=== PATIENT | female | born 1980 | race Caucasian/White ===

== ENCOUNTER 2021-02-13 19:32 | Inpatient (IN) | payer OTHER ==
[2021-02-13] MEDS ORDERED: ACETAMINOPHEN TAB 500 MG TAB PO STA (20:13)
--- NOTE | 2021-02-13 20:28 | ED ---
Skin/Abscess/FB HPI - General Chief complaint: Skin/Abscess/Foreign Body Stated complaint: leg pain, detox Time Seen by Provider: 02/13/21 19:52 Source: patient, EMS Mode of arrival: EMS - History of Present Illness Initial comments: 40-year-old female patient presents to the emergency department today for evaluation of redness and swelling to the lower extremities. 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 Staff there was concerned they would not be able to handle her medical complexity so they sent her here for further evaluation. Patient was diagnosed with lower extremity cellulitis a few weeks ago, was supposed to have IV antibiotic but did not go for her infusions. Patient states she feels generally unwell. Does report smoker's cough. Denies shortness of breath or wheezing. Her last dose of Suboxone was just prior to arrival. She is very concerned about detoxing. Patient denies any recent rash, chest pain, abdominal pain, nausea, vomiting, diarrhea, constipation, back pain, numbness, tingling, dizziness, weakness, hematuria, dysuria, urinary urgency, urinary frequency, headache, visual changes, or any other complaints. - Related Data Home Medications Medication Instructions Recorded Confirmed Albuterol Sulfate [Proair Hfa] 2 puff INHALATION RT-Q4H PRN 02/13/21 02/13/21 Amitriptyline HCl [Elavil] 100 mg PO HS 02/13/21 02/13/21 Aspirin 81 mg PO DAILY 02/13/21 02/13/21 Atorvastatin [Lipitor] 40 mg PO DAILY 02/13/21 02/13/21 Brexpiprazole [Rexulti] 4 mg PO DAILY 02/13/21 02/13/21 Buprenorphine HCl/Naloxone HCl 1 film SL TID 02/13/21 02/13/21 [Suboxone 8 mg-2 mg Sl Film] Diazepam [Valium] 5 mg PO Q8H PRN 02/13/21 02/13/21 Furosemide [Lasix] 40 mg PO DAILY 02/13/21 02/13/21 Gabapentin 800 mg PO QID 02/13/21 02/13/21 Hydrochlorothiazide 12.5 mg PO DAILY 02/13/21 02/13/21 [hydroCHLOROthiazide] Omeprazole [PriLOSEC] 20 mg PO DAILY 02/13/21 02/13/21 Potassium Chloride ER [K-Dur 10] 20 meq PO DAILY 02/13/21 02/13/21 Propranolol HCl 120 mg PO BID 02/13/21 02/13/21 Vilazodone HCl [Viibryd] 20 mg PO DAILY 02/13/21 02/13/21 Zolpidem [Ambien] 10 mg PO HS PRN 02/13/21 02/13/21 clonazePAM [KlonoPIN] 1 mg PO TID 02/13/21 02/13/21 hydrOXYzine HCL 25 mg PO TID PRN 02/13/21 02/13/21 metFORMIN HCL 500 mg PO AC-BID 02/13/21 02/13/21 Allergies Allergy/AdvReac Type Severity Reaction Status Date / Time metoclopramide [From Reglan] AdvReac Unknown Verified 02/13/21 22:01 sumatriptan [From Imitrex] AdvReac Unknown Verified 02/13/21 22:01 Review of Systems ROS Statement: Those systems with pertinent positive or pertinent negative responses have been documented in the HPI. ROS Other: All systems not noted in ROS Statement are negative. Past Medical History Past Medical History: Hyperlipidemia, Hypertension History of Any Multi-Drug Resistant Organisms: None Reported Past Surgical History: Cholecystectomy, Ear Surgery, Tubal Ligation Additional Past Surgical History / Comment(s): Cyst removal from ovary. Past Psychological History: Anxiety, Bipolar, Panic Disorder, Schizophrenia Smoking Status: Current every day smoker Past Alcohol Use History: None Reported Past Drug Use History: None Reported General Exam General appearance: alert, in no apparent distress, other (This is a well- developed, well-nourished adult female patient in no acute distress. Vital signs upon presentation are temperature 100.2F oral, pulse 125, respirations 20, blood pressure 143/89, pulse ox 97% on room air.) Eye exam: Present: normal appearance, PERRL, EOMI. Absent: scleral icterus, conjunctival injection, periorbital swelling ENT exam: Present: normal exam, normal oropharynx, mucous membranes moist Respiratory exam: Present: normal lung sounds bilaterally. Absent: respiratory distress, wheezes, rales, rhonchi, stridor Cardiovascular Exam: Present: regular rate, normal rhythm, normal heart sounds. Absent: systolic murmur, diastolic murmur, rubs, gallop, clicks GI/Abdominal exam: Present: soft, normal bowel sounds. Absent: distended, tenderness, guarding, rebound, rigid Extremities exam: Present: full ROM, normal capillary refill, other (Lower legs are edematous, overlying erythema, hot to touch. Skin is scaly.). Absent: tenderness, pedal edema, joint swelling, calf tenderness Neurological exam: Present: alert, oriented X3, CN II-XII intact Psychiatric exam: Present: normal affect, normal mood Skin exam: Present: warm, dry, intact, normal color. Absent: rash Course Vital Signs 02/13/21 02/13/21 02/13/21 19:43 20:09 21:50 Temperature 100.2 F H Pulse Rate 125 H 121 H 117 H Respiratory 20 20 20 Rate Blood Pressure 143/89 120/82 128/80 O2 Sat by Pulse 97 93 L 94 L Oximetry 02/13/21 23:08 Temperature 98.9 F Pulse Rate 112 H Respiratory 20 Rate Blood Pressure 129/77 O2 Sat by Pulse 92 L Oximetry Medical Decision Making - Medical Decision Making 40-year-old female patient presenting to the emergency department today for evaluation of bilateral lower extremity swelling and erythema. Upon arrival she is febrile tachycardic and hypoxic with oxygen running 84% on room air. Labs reviewed and did reveal white blood cell count of 14.4, neutrophils 10.9. D- dimer 1.96 urinalysis negative. Negative for COVID-19. CT angiography of the chest was obtained and showed no evidence for pulmonary embolism. Chest x-ray showed cardia megaly with interstitial infiltrates and interstitial edema. She was started on vancomycin and Kefzol. She'll be admitted to the hospital for further evaluation and treatment. Patient is agreeable to this plan. Case discussed with my attending Dr. Vanessa. - Lab Data Result diagrams: 02/13/21 21:11 02/13/21 21:11 Lab Results 02/13/21 02/13/21 02/13/21 Range/Units 21:11 21:11 21:11 WBC 14.4 H (3.8-10.6) k/uL RBC 4.70 (3.80-5.40) m/uL Hgb 13.8 (11.4-16.0) gm/dL Hct 41.6 (34.0-46.0) % MCV 88.5 (80.0-100.0) fL MCH 29.4 (25.0-35.0) pg MCHC 33.3 (31.0-37.0) g/dL RDW 15.3 (11.5-15.5) % Plt Count 330 (150-450) k/uL MPV 8.5 Neutrophils % 76 % Lymphocytes % 14 % Monocytes % 4 % Eosinophils % 5 % Basophils % 0 % Neutrophils # 10.9 H (1.3-7.7) k/uL Lymphocytes # 2.1 (1.0-4.8) k/uL Monocytes # 0.6 (0-1.0) k/uL Eosinophils # 0.7 (0-0.7) k/uL Basophils # 0.0 (0-0.2) k/uL PT 10.5 (9.0-12.0) sec INR 1.0 (<1.2) APTT 25.2 (22.0-30.0) sec D-Dimer (<0.60) mg/L FEU Sodium (137-145) mmol/L Potassium (3.5-5.1) mmol/L Chloride (98-107) mmol/L Carbon Dioxide (22-30) mmol/L Anion Gap mmol/L BUN (7-17) mg/dL Creatinine (0.52-1.04) mg/dL Est GFR (CKD-EPI)AfAm (>60 ml/min/1.73 sqM) Est GFR (CKD-EPI)NonAf (>60 ml/min/1.73 sqM) Glucose (74-99) mg/dL Plasma Lactic Acid Giovany (0.7-2.0) mmol/L Calcium (8.4-10.2) mg/dL Total Bilirubin (0.2-1.3) mg/dL AST (14-36) U/L ALT (4-34) U/L Alkaline Phosphatase (38-126) U/L Total Protein (6.3-8.2) g/dL Albumin (3.5-5.0) g/dL Urine Color Yellow Urine Appearance Clear (Clear) Urine pH 6.5 (5.0-8.0) Ur Specific [place] 1.012 (1.001-1.035) Urine Protein Negative (Negative) Urine Glucose (UA) Negative (Negative) Urine Ketones Negative (Negative) Urine Blood Negative (Negative) Urine Nitrite Negative (Negative) Urine Bilirubin Negative (Negative) Urine Urobilinogen <2.0 (<2.0) mg/dL Ur Leukocyte Esterase Moderate H (Negative) Urine RBC <1 (0-5) /hpf Urine WBC 2 (0-5) /hpf Ur Squamous Epith Cells 1 (0-4) /hpf Urine Mucus Rare H (None) /hpf Coronavirus (PCR) (Not Detectd) 02/13/21 02/13/21 02/13/21 Range/Units 21:11 21:11 21:11 WBC (3.8-10.6) k/uL RBC (3.80-5.40) m/uL Hgb (11.4-16.0) gm/dL Hct (34.0-46.0) % MCV (80.0-100.0) fL MCH (25.0-35.0) pg MCHC (31.0-37.0) g/dL RDW (11.5-15.5) % Plt Count (150-450) k/uL MPV Neutrophils % % Lymphocytes % % Monocytes % % Eosinophils % % Basophils % % Neutrophils # (1.3-7.7) k/uL Lymphocytes # (1.0-4.8) k/uL Monocytes # (0-1.0) k/uL Eosinophils # (0-0.7) k/uL Basophils # (0-0.2) k/uL PT (9.0-12.0) sec INR (<1.2) APTT (22.0-30.0) sec D-Dimer (<0.60) mg/L FEU Sodium 137 (137-145) mmol/L Potassium 3.9 (3.5-5.1) mmol/L Chloride 100 (98-107) mmol/L Carbon Dioxide 29 (22-30) mmol/L Anion Gap 8 mmol/L BUN 8 (7-17) mg/dL Creatinine 0.61 (0.52-1.04) mg/dL Est GFR (CKD-EPI)AfAm >90 (>60 ml/min/1.73 sqM) Est GFR (CKD-EPI)NonAf >90 (>60 ml/min/1.73 sqM) Glucose 107 H (74-99) mg/dL Plasma Lactic Acid Giovany 1.3 (0.7-2.0) mmol/L Calcium 9.3 (8.4-10.2) mg/dL Total Bilirubin 0.6 (0.2-1.3) mg/dL AST 19 (14-36) U/L ALT 14 (4-34) U/L Alkaline Phosphatase 155 H (38-126) U/L Total Protein 7.0 (6.3-8.2) g/dL Albumin 3.8 (3.5-5.0) g/dL Urine Color Urine Appearance (Clear) Urine pH (5.0-8.0) Ur Specific [place] (1.001-1.035) Urine Protein (Negative) Urine Glucose (UA) (Negative) Urine Ketones (Negative) Urine Blood (Negative) Urine Nitrite (Negative) Urine Bilirubin (Negative) Urine Urobilinogen (<2.0) mg/dL Ur Leukocyte Esterase (Negative) Urine RBC (0-5) /hpf Urine WBC (0-5) /hpf Ur Squamous Epith Cells (0-4) /hpf Urine Mucus (None) /hpf Coronavirus (PCR) Not Detected (Not Detectd) 02/13/21 Range/Units 21:11 WBC (3.8-10.6) k/uL RBC (3.80-5.40) m/uL Hgb (11.4-16.0) gm/dL Hct (34.0-46.0) % MCV (80.0-100.0) fL MCH (25.0-35.0) pg MCHC (31.0-37.0) g/dL RDW (11.5-15.5) % Plt Count (150-450) k/uL MPV Neutrophils % % Lymphocytes % % Monocytes % % Eosinophils % % Basophils % % Neutrophils # (1.3-7.7) k/uL Lymphocytes # (1.0-4.8) k/uL Monocytes # (0-1.0) k/uL Eosinophils # (0-0.7) k/uL Basophils # (0-0.2) k/uL PT (9.0-12.0) sec INR (<1.2) APTT (22.0-30.0) sec D-Dimer 1.96 H (<0.60) mg/L FEU Sodium (137-145) mmol/L Potassium (3.5-5.1) mmol/L Chloride (98-107) mmol/L Carbon Dioxide (22-30) mmol/L Anion Gap mmol/L BUN (7-17) mg/dL Creatinine (0.52-1.04) mg/dL Est GFR (CKD-EPI)AfAm (>60 ml/min/1.73 sqM) Est GFR (CKD-EPI)NonAf (>60 ml/min/1.73 sqM) Glucose (74-99) mg/dL Plasma Lactic Acid Giovany (0.7-2.0) mmol/L Calcium (8.4-10.2) mg/dL Total Bilirubin (0.2-1.3) mg/dL AST (14-36) U/L ALT (4-34) U/L Alkaline Phosphatase (38-126) U/L Total Protein (6.3-8.2) g/dL Albumin (3.5-5.0) g/dL Urine Color Urine Appearance (Clear) Urine pH (5.0-8.0) Ur Specific [place] (1.001-1.035) Urine Protein (Negative) Urine Glucose (UA) (Negative) Urine Ketones (Negative) Urine Blood (Negative) Urine Nitrite (Negative) Urine Bilirubin (Negative) Urine Urobilinogen (<2.0) mg/dL Ur Leukocyte Esterase (Negative) Urine RBC (0-5) /hpf Urine WBC (0-5) /hpf Ur Squamous Epith Cells (0-4) /hpf Urine Mucus (None) /hpf Coronavirus (PCR) (Not Detectd) - Radiology Data Radiology results: report reviewed, image reviewed Two-view x-ray of the chest is obtained. Report was reviewed in its entirety. Impression by Dr. Lomax shows cardiomegaly and pulmonary vascular congestion. CT angiography of the chest was obtained. Report was reviewed in its entirety. Impression by Dr. Sutton shows no evidence of pulmonary embolism. There is some mild interstitial infiltrate and atelectasis in both lower lobes. Cardiomegaly. There is also some groundglass mild interstitial infiltrates in the posterior upper lung lang. Disposition Clinical Impression: Cellulitis of both lower extremities Disposition: ADMITTED IP TO THIS [facility] Condition: Serious Decision to Admit Reason: Admit from EC Decision Date: 02/13/21 Decision Time: 23:45
[2021-02-13] MEDS: SODIUM CHLORIDE 0.9% 500 ML 500 ML IV SCH ×2 (20:30→21:00)
[2021-02-13 21:24] LABS: Basophils % (A) 0 %; Eosinophils # (A) 0.7 k/uL (0-0.7); Eosinophils % (A) 5 %; HCT 41.6 % (34.0-46.0); HGB 13.8 gm/dL (11.4-16.0); Lymphocytes # (A) 2.1 k/uL (1.0-4.8); Lymphocytes % (A) 14 %; MCH 29.4 pg (25.0-35.0); MCHC 33.3 g/dL (31.0-37.0); MCV 88.5 fL (80.0-100.0); Mean Platelet Volume 8.5; Monocytes # (A) 0.6 k/uL (0-1.0); Monocytes % (A) 4 %; Neutrophils # (A) 10.9 k/uL (1.3-7.7); Neutrophils % (A) 76 %; Platelet Count 330 k/uL (150-450); RDW 15.3 % (11.5-15.5); WBC 14.4 k/uL (3.8-10.6)
[2021-02-13 21:26] LABS: Appearance,Urine Clear (Clear); Bilirubin,Urine Negative (Negative); Blood,Urine Negative (Negative); Color,Urine Yellow; Glucose,Urine (UA) Negative (Negative); Ketones,Urine Negative (Negative); Leukocyte Esterase,Urine Moderate (Negative); Mucus,Urine Rare /hpf; Nitrite,Urine Negative (Negative); PH, Urine 6.5 (5.0-8.0); Protein,Urine Negative (Negative); RBC,Urine <1 /hpf (0-5); Specific Gravity,Urine 1.012 (1.001-1.035); Squamous Epithelial Cell,Urine 1 /hpf (0-4); Urobilinogen,Urine <2.0 mg/dL (<2.0); WBC,Urine 2 /hpf (0-5)
[2021-02-13 21:32] LABS: ALT 14 U/L (4-34); AST 19 U/L (14-36); African American GFR (CKD) >90 (>60 ml/min/1.73 sqM); Albumin 3.8 g/dL (3.5-5.0); Alkaline Phosphatase 155 U/L (38-126); Anion Gap 8 mmol/L; Blood Urea Nitrogen 8 mg/dL (7-17); Calcium 9.3 mg/dL (8.4-10.2); Carbon Dioxide 29 mmol/L (22-30); Chloride 100 mmol/L (98-107); Glucose 107 mg/dL (74-99); Non-African American GFR(CKD) >90 (>60 ml/min/1.73 sqM); Potassium 3.9 mmol/L (3.5-5.1); Sodium 137 mmol/L (137-145); Total Bilirubin 0.6 mg/dL (0.2-1.3)
[2021-02-13 21:34] LABS: Partial Thromboplastin Time 25.2 sec (22.0-30.0); Prothrombin Time 10.5 sec (9.0-12.0)
--- NOTE | 2021-02-13 21:57 | XR ---
EXAMINATION TYPE: XR chest 2V DATE OF EXAM: 02/13/2021 CLINICAL HISTORY: Fever. TECHNIQUE: Frontal and lateral view of the chest. COMPARISON: None FINDINGS: Cardiomegaly. There is pulmonary vascular congestion. There is no focal air space opacity. Trace pleural fluid in the right minor fissure. No pneumothorax seen. No acute displaced osseous fra cture. IMPRESSION: Cardiomegaly and pulmonary vascular congestion.
[2021-02-13] MEDS ORDERED: VANCOMYCIN IV PER PHARMACY 1 EACH MISC MISCELLANE PRN (22:45)
[2021-02-13] MEDS ORDERED: VANCOMYCIN 2,500 MG in SODIUM CHLORIDE 0.9% 500 ML 500 ML IVPB STA (22:51)
[2021-02-13] MEDS ORDERED: VANCOMYCIN 2,250 MG in SODIUM CHLORIDE 0.9% 500 ML 500 ML IVPB ONE (23:00)
[2021-02-13] MEDS ORDERED: ACETAMINOPHEN TAB 325 MG TAB PO PRN (23:37)
[2021-02-13] MEDS ORDERED: NALOXONE 0.4 MG/ML 1 ML VIAL IV PRN (23:37)
[2021-02-13] MEDS ORDERED: GABAPENTIN 400 MG CAP PO STA (23:43)
--- NOTE | 2021-02-14 00:06 | P.HPIM ---
History of Present Illness H&P Date: 02/13/21 Chief Complaint: Leg erythema This is a 40-year-old white female who reported to the emergency room because she was not accepted at [facility] because of medical complexity. She went to the rehab facility for addiction for opiates and benzos. She was found to have bilateral lower extremity erythema suspicious for cellulitis. Patient denies subjective fever or chills, no hematuria dysuria hematemesis or hematochezia. She denies shortness of breath but found to be hypoxic here in the emergency room with O2 saturation 84%. At the time of examination patient is in bed, she denies chest pain shortness of breath hematuria dysuria hematemesis or hematochezia. She states that she took Suboxone prior to coming to the hospital. Review of Systems 10 systems reviewed, pertinent positive and negative findings as in HPI. No ch est pain, no abdominal pain. Past Medical History Past Medical History: Hyperlipidemia, Hypertension History of Any Multi-Drug Resistant Organisms: None Reported Past Surgical History: Cholecystectomy, Ear Surgery, Tubal Ligation Additional Past Surgical History / Comment(s): Cyst removal from ovary. Past Psychological History: Anxiety, Bipolar, Panic Disorder, Schizophrenia Smoking Status: Current every day smoker Past Alcohol Use History: None Reported Past Drug Use History: None Reported Medications and Allergies Home Medications Medication Instructions Recorded Confirmed Type Albuterol Sulfate [Proair Hfa] 2 puff INHALATION RT-Q4H PRN 02/13/21 02/13/21 History Amitriptyline HCl [Elavil] 100 mg PO HS 02/13/21 02/13/21 History Aspirin 81 mg PO DAILY 02/13/21 02/13/21 History Atorvastatin [Lipitor] 40 mg PO DAILY 02/13/21 02/13/21 History Brexpiprazole [Rexulti] 4 mg PO DAILY 02/13/21 02/13/21 History Buprenorphine HCl/Naloxone HCl 1 film SL TID 02/13/21 02/13/21 History [Suboxone 8 mg-2 mg Sl Film] Diazepam [Valium] 5 mg PO Q8H PRN 02/13/21 02/13/21 History Furosemide [Lasix] 40 mg PO DAILY 02/13/21 02/13/21 History Gabapentin 800 mg PO QID 02/13/21 02/13/21 History Hydrochlorothiazide 12.5 mg PO DAILY 02/13/21 02/13/21 History [hydroCHLOROthiazide] Omeprazole [PriLOSEC] 20 mg PO DAILY 02/13/21 02/13/21 History Potassium Chloride ER [K-Dur 10] 20 meq PO DAILY 02/13/21 02/13/21 History Propranolol HCl 120 mg PO BID 02/13/21 02/13/21 History Vilazodone HCl [Viibryd] 20 mg PO DAILY 02/13/21 02/13/21 History Zolpidem [Ambien] 10 mg PO HS PRN 02/13/21 02/13/21 History clonazePAM [KlonoPIN] 1 mg PO TID 02/13/21 02/13/21 History hydrOXYzine HCL 25 mg PO TID PRN 02/13/21 02/13/21 History metFORMIN HCL 500 mg PO AC-BID 02/13/21 02/13/21 History Allergies Allergy/AdvReac Type Severity Reaction Status Date / Time metoclopramide [From Reglan] AdvReac Unknown Verified 02/13/21 22:01 sumatriptan [From Imitrex] AdvReac Unknown Verified 02/13/21 22:01 Physical Exam Vitals: Vital Signs Temp Pulse Resp BP Pulse Ox 02/13/21 23:08 98.9 F 112 H 20 129/77 92 L 02/13/21 21:50 117 H 20 128/80 94 L 02/13/21 20:09 121 H 20 120/82 93 L 02/13/21 19:43 100.2 F H 125 H 20 143/89 97 Intake and Output 02/13/21 02/13/21 02/14/21 14:59 22:59 06:59 Other: Weight 179.169 kg Constitutional: No acute distress, conversant, pleasant Eyes: Anicteric sclerae, moist conjunctiva, no lid-lag, PERRLA ENMT: NC/AT,Oropharynx clear, no erythema, exudates Neck:Supple, FROM, no masses, or JVD, No carotid bruits; No thyromegaly Lungs: Clear to auscultation, Clear to percussion, Normal respiratory effort, no accessory muscle use Cardiovascular: Heart regular in rate and rhythm, No murmurs, gallops, or rubs no peripheral edema Abdominal: Soft Nontender, nom distended, no guarding, no rebound or rigidity, Normoactive bowel sounds No hepatomegaly, No splenomegaly, No palpable mass No abdominal wall hernia noted Skin: Bilateral lower extremity discoloration and redness Extremities:No digital cyanosis , trace bilateral edema. Psychiatric: Alert and oriented to person, place and time, Appropriate affect Intact judgement Neuro: Muscles Strength 5/5 in all 4 extremities, Sensation to light touch grossly present throughout, Cranial nerves II-XII grossly intact. No focal sensory deficits Results CBC & Chem 7: 02/13/21 21:11 02/13/21 21:11 Labs: Abnormal Lab Results - Last 24 Hours (Table) 02/13/21 02/13/21 02/13/21 Range/Units 21:11 21:11 21:11 WBC 14.4 H (3.8-10.6) k/uL Neutrophils # 10.9 H (1.3-7.7) k/uL Glucose 107 H (74-99) mg/dL Alkaline Phosphatase 155 H (38-126) U/L Ur Leukocyte Esterase Moderate H (Negative) Urine Mucus Rare H (None) /hpf Assessment and Plan Plan: 1. Bilateral lower extremity venous stasis with bilateral cellulitis likely associated with diabetes: Start IV clindamycin, supportive care. 2. Leukocytoses: WBC 14,000 likely associated with cellulitis, treat underlying condition. IV fluids and IV antibiotics 3. Hypoxia, likely associated with obesity hypoventilation syndrome: Oxygen support, obtain d-dimer, obtain CT chest to rule out pulmonary embolism lower extension to Dopplers. 4. Hypervolemia: Unspecified etiology, start IV Lasix 40 mg once a day. 5. 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 7. Hyperlipidemia: Continue statin 8. Peripheral neuropathy secondary to diabetes: Continue gabapentin 9. Essential hypertension: Continue outpatient medications 10. Anxiety: On Klonopin DVT prophylaxis: Lovenox Disposition: Case management to assist with discharge until [facility] [place] once clinically stable.
--- NOTE | 2021-02-14 01:05 | CT ---
EXAMINATION TYPE: CT angio chest DATE OF EXAM: 02/14/2021 COMPARISON: None HISTORY: hypoxia, elevated d-dimer CT DLP: 902.2 mGycm Automated exposure control for dose reduction was used. CONTRAST: Performed with IV Contrast, patient injected with 70 mL of Isovue 370. There are 3-D post processed images. Exam limited by patient's size. Heart appears enlarged. There is some patchy atelectasis at the lung bases. There is no pleural effusion. There is no pericardial effusion. There are no hilar masses. The re is no mediastinal adenopathy. Thoracic aorta is intact. There is no aneurysm or dissection. There is no evidence of filling defect in the pulmonary arteries. Thoracic vertebra have normal alignment. Disc spaces are normal. There is no compression fracture. St ernum is intact. The ribs appear intact. IMPRESSION: No evidence of pulmonary embolism. There is some mild interstitial infiltrate and atelectasis in both lower lobes. Cardiomegaly. There is also some groundglass mild interstitial infiltrate in the bootmaker ior upper lung lang.
[2021-02-14 01:35] LABS: Basophils % (A) 0 %; Eosinophils # (A) 0.6 k/uL (0-0.7); Eosinophils % (A) 5 %; HCT 40.7 % (34.0-46.0); Lymphocytes # (A) 1.9 k/uL (1.0-4.8); Lymphocytes % (A) 16 %; MCH 28.3 pg (25.0-35.0); MCHC 31.8 g/dL (31.0-37.0); MCV 88.7 fL (80.0-100.0); Mean Platelet Volume 6.8; Monocytes # (A) 0.3 k/uL (0-1.0); Monocytes % (A) 2 %; Neutrophils % (A) 75 %; Platelet Count 396 k/uL (150-450); RBC 4.59 m/uL (3.80-5.40); RDW 15.4 % (11.5-15.5)
[2021-02-14 01:51] LABS: ALT 14 U/L (4-34); AST 18 U/L (14-36); African American GFR (CKD) >90 (>60 ml/min/1.73 sqM); Albumin 3.3 g/dL (3.5-5.0); Alkaline Phosphatase 134 U/L (38-126); Anion Gap 7 mmol/L; Blood Urea Nitrogen 7 mg/dL (7-17); Calcium 8.8 mg/dL (8.4-10.2); Carbon Dioxide 29 mmol/L (22-30); Chloride 102 mmol/L (98-107); Glucose 129 mg/dL (74-99); Non-African American GFR(CKD) >90 (>60 ml/min/1.73 sqM); Potassium 3.6 mmol/L (3.5-5.1); Sodium 138 mmol/L (137-145); Total Bilirubin 0.5 mg/dL (0.2-1.3); Total Protein 6.3 g/dL (6.3-8.2)
[2021-02-14] MEDS ORDERED: KETOROLAC 15 MG/ML 1 ML VIAL IM STA (05:59)
[2021-02-14] MEDS ORDERED: KETOROLAC 15 MG/ML 1 ML VIAL IVP STA (06:07)
[2021-02-14 06:25] LABS: Basophils % (A) 0 %; Eosinophils # (A) 0.4 k/uL (0-0.7); Eosinophils % (A) 4 %; HCT 45.6 % (34.0-46.0); HGB 14.7 gm/dL (11.4-16.0); Hypochromasia Slight; Lymphocytes # (A) 1.5 k/uL (1.0-4.8); Lymphocytes % (A) 14 %; MCHC 32.2 g/dL (31.0-37.0); MCV 90.2 fL (80.0-100.0); Mean Platelet Volume 8.3; Monocytes # (A) 0.6 k/uL (0-1.0); Monocytes % (A) 6 %; Neutrophils # (A) 8.2 k/uL (1.3-7.7); Neutrophils % (A) 75 %; Platelet Count 339 k/uL (150-450); RBC 5.06 m/uL (3.80-5.40); RDW 15.5 % (11.5-15.5); WBC 10.9 k/uL (3.8-10.6)
[2021-02-14 06:43] LABS: ALT 15 U/L (4-34); AST 30 U/L (14-36); African American GFR (CKD) >90 (>60 ml/min/1.73 sqM); Albumin 3.8 g/dL (3.5-5.0); Alkaline Phosphatase 140 U/L (38-126); Anion Gap 11 mmol/L; Blood Urea Nitrogen 7 mg/dL (7-17); Calcium 9.2 mg/dL (8.4-10.2); Carbon Dioxide 23 mmol/L (22-30); Chloride 105 mmol/L (98-107); Glucose 106 mg/dL (74-99); Non-African American GFR(CKD) >90 (>60 ml/min/1.73 sqM); Potassium 4.4 mmol/L (3.5-5.1); Sodium 139 mmol/L (137-145); Total Bilirubin 0.7 mg/dL (0.2-1.3); Total Protein 7.2 g/dL (6.3-8.2)
[2021-02-14 07:46] LABS: Glucose,Whole Blood 97 mg/dL (75-99)
[2021-02-14] MEDS: PANTOPRAZOLE 40 MG TABLET PO SCH (08:19)
[2021-02-14] MEDS: ATORVASTATIN 40 MG TAB PO SCH (08:20)
[2021-02-14] MEDS: hydroCHLOROthiazide 12.5 MG CAP PO SCH (08:20)
[2021-02-14] MEDS: PROPRANOLOL 40 MG TAB PO SCH ×2 (08:20→20:31)
[2021-02-14] MEDS: FUROSEMIDE 10 MG/ML 4 ML VIAL IV SCH (08:20)
[2021-02-14] MEDS: ASPIRIN 81 MG PO SCH (08:20)
[2021-02-14] MEDS: GABAPENTIN 400 MG CAP PO SCH ×4 (08:20→20:29)
[2021-02-14] MEDS: clonazePAM 1 MG TAB PO SCH ×3 (08:20→20:30)
[2021-02-14] MEDS: NON FORMULARY DRUG (Brexpiprazole [Rexulti] 4 MG Tablet) PO SCH (08:21)
[2021-02-14] MEDS: ENOXAPARIN 40 MG/0.4 ML SYRINGE SQ SCH (08:21)
--- NOTE | 2021-02-14 08:54 | US ---
EXAMINATION TYPE: US venous doppler duplex LE DATE OF EXAM: 02/14/2021 8:46 AM COMPARISON: NONE CLINICAL HISTORY: leg swelling . No redness. Pain. SIDE PERFORMED: Bilateral TECHNIQUE: The lower extremity deep venous system is examined utilizing real time linear array sonog kota with graded compression, doppler sonography and color-flow sonography. VESSELS IMAGED: Common Femoral Vein Deep Femoral Vein Greater Saphenous Vein * Femoral Vein Popliteal Vein Small Saphenous Vein *- not well visualized Proximal Calf Veins- not seen (* superficial vessels) Suboptimal due to patient body habitus Right Leg: Negative for acute DVT Left Leg: Negative for acute DVT Grayscale, color doppler, spectral doppler imaging performed of the deep veins of the bilateral lower extremities. There is normal flow, compressibility, vascular waveforms. IMPRESSION: Suboptimal study without convincing evidence of acute DVT in either lower extremity.
[2021-02-14] MEDS: HYDROcodone/APAP 5-325MG 1 EACH TAB PO PRN ×3 (10:43→20:30)
[2021-02-14] MEDS: VANCOMYCIN 2,250 MG in SODIUM CHLORIDE 0.9% 500 ML 500 ML IVPB SCH ×2 (11:26→23:40)
[2021-02-14 11:51] LABS: Glucose,Whole Blood 128 mg/dL (75-99)
[2021-02-14] MEDS: MORPHINE SULFATE 2 MG/ML SYRINGE IVP PRN ×3 (13:25→21:49)
--- NOTE | 2021-02-14 16:29 | ECHOF ---
Referral Reason:hypoxia MEASUREMENTS -------- HEIGHT: 162.6 cm WEIGHT: 179.2 kg BP: 119/81 IVSd: 1.5 cm (0.6 - 1.1) LVIDd: 4.3 cm (3.9 - 5.3) LVPWd: 1.2 cm (0.6 - 1.1) IVSs: 1.2 cm LVIDs: 2.3 cm LVPWs: 2.0 cm LAESV Index (A-L): 20.62 ml/m MV E Arnoldo: 1.26 m/s MV DecT: 232 ms MV A Arnoldo: 0.92 m/s MV E/A Ratio: 1.37 RAP: 5.00 mmHg RVSP: 40.28 mmHg FINDINGS -------- Sinus rhythm. This was a technically difficult study with suboptimal views. There is mild concentric left ventricular hypertrophy. Overall left ventricular systolic function i s normal with, an EF between 55 - 60 %. The RV was not well visualized. The left atrium was not well visualized. The right atrium was not well visualized. 5.0mg of Lumason was utilized for enhancement of images The aortic valve was not well visualized. There is no evidence of aortic regurgitation. There is no evidence of aortic stenosis. The mitral valve was not well visualized. Mild mitral regurgitation is present. The tricuspid valve was not well visualized. Mild tricuspid regurgitation present. Right ventricu lar systolic pressure is normal at < 35 mmHg. The right ventricular systolic pressure, as measured by Doppler, is 40.28mmHg. The pulmonic valve was not well visualized. There is no pulmonic regurgitation present. IVC Not well visualized. There is no pericardial effusion. CONCLUSIONS -------- 1. This was a technically difficult study with suboptimal views. 2. There is mild concentric left ventricular hypertrophy. 3. Overall left ventricular systolic function is normal with, an EF between 55 - 60 %. 4. Mild mitral regurgitation is present. 5. Mild tricuspid regurgitation present. 6. There is no pericardial effusion. BUNDLE CUTTER: Jenny Navarro RDCS
[2021-02-14 17:03] LABS: Glucose,Whole Blood 113 mg/dL (75-99)
--- NOTE | 2021-02-14 17:07 | P.PN ---
Subjective Progress Note Date: 02/14/21 Principal diagnosis: Lower extremity pain Patient is a 40-year-old female who presented to the emergency room with complaints of bilateral leg erythema, pain, swelling. Patient was being admitted for opiate and benzo's rehab states that she was just accepted into rehab facility [facility] however she was denied admission by their facility and sent to the hospital for evaluation due to concern for cellulitis. [id number]: Patient currently is in significant amount of bilateral lower extremity pain she is crying she states that she is going through which [employer] and is scared. She is requesting her home medication of Suboxone which hospital does not have. Patient states that she cannot take her home medication because she lives 9 hours away from the hospital Objective - Vital Signs Vital signs: Vital Signs Temp 97.9 F 02/14/21 14:22 Pulse 80 02/14/21 14:22 Resp 19 02/14/21 14:22 BP 114/74 02/14/21 14:22 Pulse Ox 98 02/14/21 14:22 Intake & Output 02/13/21 02/14/21 02/14/21 18:59 06:59 18:59 Intake Total 436 Balance 436 Weight 179.169 kg Intake: Oral 436 Other: # Voids 1 2 - Exam Constitutional: No acute distress, conversant, pleasant Eyes: Anicteric sclerae, moist conjunctiva, no lid-lag, PERRLA ENMT: NC/AT,Oropharynx clear, no erythema, exudates Neck:Supple, FROM, no masses, or JVD, No carotid bruits; No thyromegaly Lungs: Clear to auscultation, Clear to percussion, Normal respiratory effort, no accessory muscle use Cardiovascular: Heart regular in rate and rhythm, No murmurs, gallops, or rubs no peripheral edema Abdominal: Soft Nontender, nom distended, no guarding, no rebound or rigidity, Normoactive bowel sounds No hepatomegaly, No splenomegaly, No palpable mass No abdominal wall hernia noted Skin: Bilateral lower extremity discoloration and redness Extremities: She has chronic lymphedema no significant erythema noted Psychiatric: Alert and oriented to person, place and time, Appropriate affect Intact judgement Neuro: Muscles Strength 5/5 in all 4 extremities, Sensation to light touch grossly present throughout, Cranial nerves II-XII grossly intact. No focal sensory deficits - Labs CBC & Chem 7: 02/14/21 05:43 02/14/21 05:43 Labs: Abnormal Lab Results - Last 24 Hours (Table) 02/13/21 02/13/21 02/13/21 Range/Units 21:11 21:11 21:11 WBC 14.4 H (3.8-10.6) k/uL Neutrophils # 10.9 H (1.3-7.7) k/uL D-Dimer (<0.60) mg/L FEU Glucose 107 H (74-99) mg/dL POC Glucose (mg/dL) (75-99) mg/dL Alkaline Phosphatase 155 H (38-126) U/L Albumin (3.5-5.0) g/dL Ur Leukocyte Esterase Moderate H (Negative) Urine Mucus Rare H (None) /hpf 02/13/21 02/14/21 02/14/21 Range/Units 21:11 01:25 01:25 WBC 12.0 H (3.8-10.6) k/uL Neutrophils # 9.0 H (1.3-7.7) k/uL D-Dimer 1.96 H 1.50 H (<0.60) mg/L FEU Glucose (74-99) mg/dL POC Glucose (mg/dL) (75-99) mg/dL Alkaline Phosphatase (38-126) U/L Albumin (3.5-5.0) g/dL Ur Leukocyte Esterase (Negative) Urine Mucus (None) /hpf 02/14/21 02/14/21 02/14/21 Range/Units 01:25 05:43 05:43 WBC 10.9 H (3.8-10.6) k/uL Neutrophils # 8.2 H (1.3-7.7) k/uL D-Dimer (<0.60) mg/L FEU Glucose 129 H 106 H (74-99) mg/dL POC Glucose (mg/dL) (75-99) mg/dL Alkaline Phosphatase 134 H 140 H (38-126) U/L Albumin 3.3 L (3.5-5.0) g/dL Ur Leukocyte Esterase (Negative) Urine Mucus (None) /hpf 02/14/21 Range/Units 11:50 WBC (3.8-10.6) k/uL Neutrophils # (1.3-7.7) k/uL D-Dimer (<0.60) mg/L FEU Glucose (74-99) mg/dL POC Glucose (mg/dL) 128 H (75-99) mg/dL Alkaline Phosphatase (38-126) U/L Albumin (3.5-5.0) g/dL Ur Leukocyte Esterase (Negative) Urine Mucus (None) /hpf Assessment and Plan Assessment: 1. Bilateral lower extremity venous stasis with possible bilateral cellulitis -Patient currently is on cefazolin and vancomycin which we should be able to de- escalate -Currently patient's lower extremity does not appear to be erythematous. We'll order infectious workup including pro-Aureliano sed rate CRP. Patient did not have any evidence of pyrexia however did have elevated WBC count at admission. 2. Leukocytoses -Continue to trend. 3. Acute hypoxic respiratory failure -Patient does not report on home oxygen use. She is currently on 4 L nasal cannula. CTA was negative for evidence of PE. Did show possibility of mild interstitial infiltrate and atelectasis in both lower lobes. Patient was started on broad-spectrum antibiotics of vancomycin and cefazolin. We'll continue to monitor and de-escalate as able. 4. Hypervolemia -Patient was given dose of diuretic therapy in the emergency room. Patient's echocardiogram shows preserved EF without evidence of stroke and congestive heart failure 5. 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 Opiates and benzos abuse/dependence with impending withdrawal -Patient states that she is taking Suboxone medication for years. She was being admitted to [facility] [place] for benzo dependence. Patient is unable to have her home Suboxone medication years old will start patient on opioid medication to prevent abrupt withdrawal. Wean as able 7. Hyperlipidemia: -Continue statin 8. Peripheral neuropathy secondary to diabetes: -Continue gabapentin 9. Essential hypertension -BP currently stable continue with home medication hydrochlorothiazide 10. Anxiety: On Klonopin DVT prophylaxis: Lovenox Disposition: Case management to assist with discharge until [facility] once clinically stable.
[2021-02-14 20:19] LABS: Glucose,Whole Blood 120 mg/dL (75-99)
[2021-02-14] MEDS: NICOTINE 21MG/24HR PATCH TRANSDERM SCH (20:28)
[2021-02-14] MEDS: AMITRIPTYLINE HCL 50 MG TAB PO SCH (20:31)
[2021-02-15] MEDS: HYDROcodone/APAP 5-325MG 1 EACH TAB PO PRN ×6 (00:51→22:07)
[2021-02-15] MEDS: MORPHINE SULFATE 2 MG/ML SYRINGE IVP PRN ×4 (02:30→20:40)
[2021-02-15 07:29] LABS: Glucose,Whole Blood 101 mg/dL (75-99)
[2021-02-15] MEDS: NON FORMULARY DRUG (Brexpiprazole [Rexulti] 4 MG Tablet) PO SCH (07:42)
[2021-02-15] MEDS: ASPIRIN 81 MG PO SCH (07:49)
[2021-02-15] MEDS: ATORVASTATIN 40 MG TAB PO SCH (07:49)
[2021-02-15] MEDS: PANTOPRAZOLE 40 MG TABLET PO SCH (07:49)
[2021-02-15] MEDS: clonazePAM 1 MG TAB PO SCH ×3 (07:50→22:07)
[2021-02-15] MEDS: GABAPENTIN 400 MG CAP PO SCH ×4 (07:50→20:41)
[2021-02-15] MEDS: NICOTINE 21MG/24HR PATCH TRANSDERM SCH (07:50)
[2021-02-15] MEDS: FUROSEMIDE 10 MG/ML 4 ML VIAL IV SCH (07:50)
[2021-02-15] MEDS: ENOXAPARIN 40 MG/0.4 ML SYRINGE SQ SCH (07:50)
[2021-02-15] MEDS: hydroCHLOROthiazide 12.5 MG CAP PO SCH (07:50)
[2021-02-15] MEDS: PROPRANOLOL 40 MG TAB PO SCH ×2 (07:51→20:41)
[2021-02-15] MEDS: VANCOMYCIN 2,250 MG in SODIUM CHLORIDE 0.9% 500 ML 500 ML IVPB SCH (11:17)
[2021-02-15 12:05] LABS: Basophils # (A) 0.03 X 10*3/uL (0.00-0.10); Basophils % (A) 0.3 %; Eosinophils # (A) 0.49 X 10*3/uL (0.04-0.35); Eosinophils % (A) 5.5 %; HCT 38.6 % (37.2-46.3); HGB 11.7 g/dL (12.0-15.0); Lymphocytes # (A) 1.67 X 10*3/uL (0.90-5.00); Lymphocytes % (A) 18.6 %; MCH 27.9 pg (27.0-32.0); MCHC 30.3 g/dL (32.0-37.0); MCV 91.9 fL (80.0-97.0); Monocytes # (A) 0.46 X 10*3/uL (0.20-1.00); Monocytes % (A) 5.1 %; Neutrophils # (A) 6.27 X 10*3/uL (1.80-7.70); Neutrophils % (A) 70.1 %; Platelet Count 381 X 10*3/uL (140-440); RDW 16.3 % (11.5-14.5); WBC 8.96 X 10*3/uL (4.50-10.00)
[2021-02-15 12:20] LABS: Glucose,Whole Blood 134 mg/dL (75-99)
[2021-02-15 13:12] LABS: African American GFR (CKD) 124.7 (60.0-200.0); Anion Gap 5.9 mmol/L (4.00-12.00); BUN/Creat Ratio 11.43 Ratio (12.00-20.00); C Reactive Protein 6.2 mg/dL (0.0-0.8); Calcium 8.9 mg/dL (8.7-10.3); Carbon Dioxide 32.1 mmol/L (21.6-31.8); Non-African American GFR(CKD) 107.6 (60.0-200.0); Potassium 3.9 mmol/L (3.5-5.5)
[2021-02-15 13:53] LABS: Erythrocyte Sedimentation Rate 53 mm/Hr (0-20)
--- NOTE | 2021-02-15 14:40 | P.PN ---
Subjective Progress Note Date: 02/15/21 Hospital course Patient is a 40-year-old female who presented to the emergency room with complaints of bilateral leg erythema, pain, swelling. Patient was being admitted for opiate and benzo's rehab states that she was just accepted into rehab facility [facility] however she was denied admission by their facility and sent to the hospital for evaluation due to concern for cellulitis. Subjective: 02/15/2021 Patient feels better, no chest pain no abdominal pain no nausea no vomiting no dizziness. She is on 3-4 L of oxygen. Remains afebrile Objective - Vital Signs Vital signs: Vital Signs Temp 97.6 F 02/15/21 07:00 Pulse 83 02/15/21 07:00 Resp 16 02/15/21 07:00 BP 122/77 02/15/21 07:00 Pulse Ox 94 L 02/15/21 08:45 Intake & Output 02/14/21 02/15/21 02/15/21 18:59 06:59 18:59 Intake Total 556 10 238 Balance 556 10 238 Intake: IV 10 Invasive Line 2 10 Oral 556 238 Other: # Voids 2 3 2 - Exam Constitutional: No acute distress, conversant, pleasant Eyes: Anicteric sclerae, moist conjunctiva, no lid-lag, PERRLA ENMT: NC/AT,Oropharynx clear, no erythema, exudates Neck:Supple, FROM, no masses, or JVD Lungs: Clear to auscultation, Clear to percussion, Normal respiratory effort, no accessory muscle use Cardiovascular: Heart regular in rate and rhythm, No murmurs, gallops, or rubs no peripheral edema Abdominal: Soft Nontender, non distended, no guarding, no rebound or rigidity Skin: Bilateral lower extremity discoloration and redness Extremities: She has chronic lymphedema no significant erythema noted Psychiatric: Alert and oriented to person, place and time, Appropriate affect Intact judgement Neuro: Muscles Strength 5/5 in all 4 extremities, Sensation to light touch g rossly present throughout, Cranial nerves II-XII grossly intact. No focal sensory deficits - Labs CBC & Chem 7: 02/15/21 06:24 02/15/21 06:24 Labs: Abnormal Lab Results - Last 24 Hours (Table) 02/14/21 02/14/21 02/15/21 Range/Units 17:01 20:18 06:24 Hgb 11.7 L (12.0-15.0) g/dL MCHC 30.3 L (32.0-37.0) g/dL RDW 16.3 H (11.5-14.5) % Eosinophils # 0.49 H (0.04-0.35) X 10*3/uL ESR 53 H (0-20) mm/Hr Carbon Dioxide (21.6-31.8) mmol/L BUN (9.0-27.0) mg/dL BUN/Creatinine Ratio (12.00-20.00) Ratio POC Glucose (mg/dL) 113 H 120 H (75-99) mg/dL C-Reactive Protein (0.0-0.8) mg/dL 02/15/21 02/15/21 02/15/21 Range/Units 06:24 07:28 12:19 Hgb (12.0-15.0) g/dL MCHC (32.0-37.0) g/dL RDW (11.5-14.5) % Eosinophils # (0.04-0.35) X 10*3/uL ESR (0-20) mm/Hr Carbon Dioxide 32.1 H (21.6-31.8) mmol/L BUN 8.0 L (9.0-27.0) mg/dL BUN/Creatinine Ratio 11.43 L (12.00-20.00) Ratio POC Glucose (mg/dL) 101 H 134 H (75-99) mg/dL C-Reactive Protein 6.2 H (0.0-0.8) mg/dL Microbiology - Last 24 Hours (Table) 02/13/21 21:11 Blood Culture - Preliminary Blood No Growth after 24 hours 02/13/21 21:11 Blood Culture - Preliminary Blood No Growth after 24 hours Assessment and Plan Plan: 1. Bilateral lower extremity venous stasis with bilateral cellulitis likely associated with diabetes: Deescalate antibiotics to cefazolin. Discontinue vancomycin. 2. Leukocytoses: WBC 14,000 likely associated with cellulitis, treat underlying condition. Normalized. 3. Acute Hypoxia, with acute hypoxic respiratory failure likely associated with obesity hypoventilation syndrome: Oxygen support, CT chest negative for PE. Continue on antibiotics for infiltrates. 4. Hypervolemia: Unspecified etiology, continue IV Lasix, 2-D echo preserved ejection fraction. 5. Diabetes type 2 with chronic venous stasis and hyperglycemia: Continue on insulin sliding scale 6. 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 Patient was initially went to be admitted to [facility] for benzo dependence but 31 7. Hyperlipidemia: Continue statin 8. Peripheral neuropathy secondary to diabetes: Continue gabapentin 9. Essential hypertension: Continue outpatient medications 10. Anxiety: On Klonopin DVT prophylaxis: Lovenox Disposition: Case management to assist with discharge to [facility] once clinically stable.
[2021-02-15 16:56] LABS: Glucose,Whole Blood 100 mg/dL (75-99)
[2021-02-15 20:04] LABS: Glucose,Whole Blood 133 mg/dL (75-99)
[2021-02-15] MEDS: AMITRIPTYLINE HCL 50 MG TAB PO SCH (20:41)
[2021-02-16] MEDS: MORPHINE SULFATE 2 MG/ML SYRINGE IVP PRN ×7 (00:31→23:29)
[2021-02-16] MEDS: HYDROcodone/APAP 5-325MG 1 EACH TAB PO PRN ×6 (02:05→21:34)
[2021-02-16 06:32] LABS: ALT 14 U/L (4-34); AST 25 U/L (14-36); African American GFR (CKD) >90 (>60 ml/min/1.73 sqM); Albumin 3.8 g/dL (3.5-5.0); Albumin/Globulin Ratio 1.2; Alkaline Phosphatase 136 U/L (38-126); Anion Gap 7 mmol/L; Blood Urea Nitrogen 7 mg/dL (7-17); Calcium 9.3 mg/dL (8.4-10.2); Carbon Dioxide 31 mmol/L (22-30); Chloride 98 mmol/L (98-107); Globulin 3.2 g/dL; Glucose 97 mg/dL (74-99); Non-African American GFR(CKD) >90 (>60 ml/min/1.73 sqM); Sodium 136 mmol/L (137-145); Total Bilirubin 0.4 mg/dL (0.2-1.3)
[2021-02-16 07:13] LABS: Glucose,Whole Blood 96 mg/dL (75-99)
[2021-02-16] MEDS: GABAPENTIN 400 MG CAP PO SCH ×4 (08:28→20:21)
[2021-02-16] MEDS: clonazePAM 1 MG TAB PO SCH ×3 (08:28→20:21)
[2021-02-16] MEDS: ENOXAPARIN 40 MG/0.4 ML SYRINGE SQ SCH (08:28)
[2021-02-16] MEDS: hydroCHLOROthiazide 12.5 MG CAP PO SCH (08:28)
[2021-02-16] MEDS: PANTOPRAZOLE 40 MG TABLET PO SCH (08:28)
[2021-02-16] MEDS: ATORVASTATIN 40 MG TAB PO SCH (08:28)
[2021-02-16] MEDS: ASPIRIN 81 MG PO SCH (08:28)
[2021-02-16] MEDS: NICOTINE 21MG/24HR PATCH TRANSDERM SCH (08:29)
[2021-02-16] MEDS: PROPRANOLOL 40 MG TAB PO SCH ×3 (08:29→23:06)
[2021-02-16] MEDS: FUROSEMIDE 10 MG/ML 4 ML VIAL IV SCH (08:29)
[2021-02-16] MEDS: NON FORMULARY DRUG (Brexpiprazole [Rexulti] 4 MG Tablet) PO SCH (08:37)
[2021-02-16] MEDS ORDERED: VANCOMYCIN TROUGH DUE 1 EACH MISC MISCELLANE ONE (10:00)
[2021-02-16 11:53] LABS: Glucose,Whole Blood 112 mg/dL (75-99)
[2021-02-16 12:31] LABS: Basophils # (A) 0.04 X 10*3/uL (0.00-0.10); Basophils % (A) 0.5 %; Eosinophils # (A) 0.52 X 10*3/uL (0.04-0.35); Eosinophils % (A) 6.3 %; HGB 11.7 g/dL (12.0-15.0); Lymphocytes # (A) 1.68 X 10*3/uL (0.90-5.00); Lymphocytes % (A) 20.2 %; MCH 27.5 pg (27.0-32.0); MCV 91.8 fL (80.0-97.0); Mean Platelet Volume 10.7 fL (9.5-12.2); Monocytes # (A) 0.44 X 10*3/uL (0.20-1.00); Monocytes % (A) 5.3 %; Neutrophils % (A) 67.2 %; Platelet Count 355 X 10*3/uL (140-440); RBC 4.25 X 10*6/uL (4.10-5.20); WBC 8.32 X 10*3/uL (4.50-10.00)
[2021-02-16] MEDS: traMADol 50 MG TAB PO PRN ×2 (15:23→19:37)
[2021-02-16 17:25] LABS: Glucose,Whole Blood 116 mg/dL (75-99)
[2021-02-16] MEDS: AMITRIPTYLINE HCL 50 MG TAB PO SCH (20:21)
[2021-02-16 20:23] VITALS: RESP 16
[2021-02-16 20:28] LABS: Glucose,Whole Blood 109 mg/dL (75-99)
--- NOTE | 2021-02-16 21:36 | P.PN ---
Subjective Progress Note Date: 02/16/21 (delayed charting seen at 1330) Patient is a 40-year-old female with a history of chronic opiate dependency on Suboxone, diabetes mellitus type 2 with neuropathy, dyslipidemia, and hypertension who presented to the ER from [place] secondary to concerns for cellulitis. He was subsequently diagnosed with bilateral lower extremity venous stasis with possible cellulitis and was started on IV clindamycin. Her white blood cell count continued to improve during her hospital stay. He continued to improve rapidly. Due to hypoxia she underwent a CT of the chest which showed no evidence of pulmonary embolism but some mild interstitial infiltrate and atelectasis in both lower lobes. Chest x-ray showed pulmonary edema. Lower extremity venous Doppler was a suboptimal study but no concerning evidence of acute DVT. She underwent echocardiogram which showed an ejection fraction of 55-60%. Her antibiotics had been transitioned to cefazolin on 02/14. She also been started on IV Lasix. Patient seen and examined at bedside. She is feeling much better her legs are much less red and swollen. General: non toxic, no distress, appears at stated age, obese, appears older than stated age Derm: warm, dry Head: atraumatic, normocephalic, symmetric Eyes: EOMI, no lid lag, anicteric sclera Mouth: no lip lesion, mucus membranes moist Cardiovascular: S1S2 reg, no murmur, positive posterior tibial pulse bilateral, Lungs: CTA bilateral, no rhonchi, no rales , no accessory muscle use Abdominal: soft, nontender to palpation, no guarding, no appreciable organomegaly Ext: no gross muscle atrophy, no edema, no contractures Neuro: CN II-XI grossly intact, no focal neuro deficits Psych: Alert, oriented, appropriate affect Bilateral chronic venous stasis changes with acute cellulitis -Continue with Cefazolin. Plan will be to complete a course of 7 days of Keflex on discharge -Continue with elevating her legs and wrapping -Oral Lasix on discharge Chronic opiate dependency -Patient is off of her Suboxone as it is not available in the hospital and she is from [place] -Continue with [place] and Ultram for pain Acute hypoxic respiratory failure -Workup has been negative -Suspect secondary to restrictive disease from morbid obesity -Wean O2 as able Chronic conditions: Indications reviewed Diabetes mellitus type 2 with neuropathy Dyslipidemia Hypertension Objective - Vital Signs Vital signs: Vital Signs Temp 97.9 F 02/16/21 19:08 Pulse 82 02/16/21 19:08 Resp 16 02/16/21 19:08 BP 100/68 02/16/21 19:08 Pulse Ox 95 02/16/21 19:08 Intake & Output 02/16/21 02/16/21 02/17/21 06:59 18:59 06:59 Intake Total 760 Balance 760 Intake: Oral 760 Other: Voiding Method Toilet # Voids 3 3 1 - Labs CBC & Chem 7: 02/16/21 05:27 02/16/21 05:27 Labs: Abnormal Lab Results - Last 24 Hours (Table) 02/16/21 02/16/21 02/16/21 Range/Units 05:27 05:27 11:52 Hgb 11.7 L (12.0-15.0) g/dL MCHC 30.0 L (32.0-37.0) g/dL RDW 16.0 H (11.5-14.5) % Eosinophils # 0.52 H (0.04-0.35) X 10*3/uL Sodium 136 L (137-145) mmol/L Carbon Dioxide 31 H (22-30) mmol/L POC Glucose (mg/dL) 112 H (75-99) mg/dL Alkaline Phosphatase 136 H (38-126) U/L 02/16/21 02/16/21 Range/Units 17:24 20:27 Hgb (12.0-15.0) g/dL MCHC (32.0-37.0) g/dL RDW (11.5-14.5) % Eosinophils # (0.04-0.35) X 10*3/uL Sodium (137-145) mmol/L Carbon Dioxide (22-30) mmol/L POC Glucose (mg/dL) 116 H 109 H (75-99) mg/dL Alkaline Phosphatase (38-126) U/L Microbiology - Last 24 Hours (Table) 02/13/21 21:11 Blood Culture - Preliminary Blood No Growth after 48 hours 02/13/21 21:11 Blood Culture - Preliminary Blood No Growth after 48 hours
[2021-02-16] MEDS: AMMONIUM LACTATE 12% LOTION 225 GM BTL TOPICAL SCH (23:02)
[2021-02-17] MEDS: HYDROcodone/APAP 5-325MG 1 EACH TAB PO PRN ×2 (02:39→08:37)
[2021-02-17 02:51] VITALS: TEMP 98
[2021-02-17] MEDS: MORPHINE SULFATE 2 MG/ML SYRINGE IVP PRN ×2 (04:57→09:16)
[2021-02-17] MEDS: traMADol 50 MG TAB PO PRN (05:53)
[2021-02-17 07:44] LABS: Glucose,Whole Blood 102 mg/dL (75-99)
[2021-02-17] MEDS: NICOTINE 21MG/24HR PATCH TRANSDERM SCH (08:30)
[2021-02-17] MEDS: ENOXAPARIN 40 MG/0.4 ML SYRINGE SQ SCH (08:30)
[2021-02-17] MEDS: clonazePAM 1 MG TAB PO SCH (08:31)
[2021-02-17] MEDS: PROPRANOLOL 40 MG TAB PO SCH (08:31)
[2021-02-17] MEDS: ASPIRIN 81 MG PO SCH (08:31)
[2021-02-17] MEDS: PANTOPRAZOLE 40 MG TABLET PO SCH (08:31)
[2021-02-17] MEDS: ATORVASTATIN 40 MG TAB PO SCH (08:31)
[2021-02-17] MEDS: hydroCHLOROthiazide 12.5 MG CAP PO SCH (08:31)
[2021-02-17] MEDS: GABAPENTIN 400 MG CAP PO SCH (08:31)
[2021-02-17] MEDS: FUROSEMIDE 10 MG/ML 4 ML VIAL IV SCH (08:32)
[2021-02-17] MEDS: AMMONIUM LACTATE 12% LOTION 225 GM BTL TOPICAL SCH (08:37)
[2021-02-17] MEDS: NON FORMULARY DRUG (Brexpiprazole [Rexulti] 4 MG Tablet) PO SCH (08:38)
[2021-02-17 08:54] VITALS: BP 126/77; PULSE 95
--- NOTE | 2021-02-17 20:04 | P.DS ---
Providers Date of admission: 02/16/21 09:05 Expected date of discharge: 02/17/21 Attending physician: Paige Cárdenas MD Primary care physician: Physician Nonstaff Hospital Course: Discharge Diagnosis: Bilateral chronic venous stasis changes with acute cellulitis Chronic opiate dependency Acute hypoxic respiratory failure Morbid obeisty with BMI 67.8 Diabetes mellitus type 2 with neuropathy Dyslipidemia Hypertension Hospital Course: Patient is a 40-year-old female with a history of chronic opiate dependency on Suboxone, diabetes mellitus type 2 with neuropathy, dyslipidemia, and hypertension who presented to the ER from [place] secondary to concerns for cellulitis. He was subsequently diagnosed with bilateral lower extremity venous stasis with possible cellulitis and was started on IV clindamycin whcihc was transitioned to cefazolin. Her white blood cell count continued to improve during her hospital stay. Due to hypoxia she underwent a CT of the chest which showed no evidence of pulmonary embolism but some mild interstitial infiltrate and atelectasis in both lower lobes. Chest x-ray showed pulmonary edema. Lower extremity venous Doppler was a suboptimal study but no concerning evidence of acute DVT. She underwent echocardiogram which showed an ejection fraction of 55-60%. Her antibiotics had been transitioned to cefazolin on 02/14. She also been started on IV Lasix which improved her lower stomach edema. She was determined stable for discharge home to complete a course of oral antibiotics I'll up: PCP in 1-2 weeks, patient is being discharged to [facility]. She will obtain compression stockings that are sized appropriately and resume her home hydrochlorothiazide and Lasix dosing. I discussed that she will need to follow-up with her primary care physician as she should be optimized on either of these medications but not usable concurrently. Patient seen and examined at bedside. Having some shortness of breath when up a nd walking but states she is used to that. Denies any nausea, vomiting. States her legs feel better. Vital signs reviewed and stable. General: non toxic, no distress, appears at stated age Derm: Lymphedema bilateral lower extremities, nonpitting with improved redness from ankle to as well as thick wanda appearance to both legs. Head: atraumatic, normocephalic, symmetric Eyes: EOMI, no lid lag, anicteric sclera Mouth: no lip lesion, mucus membranes moist Cardiovascular: S1S2 reg, no murmur, positive posterior tibial pulse bilateral, Lungs: Decreased breath sounds bilateral, no rhonchi, no rales , no accessory muscle use Abdominal: soft, nontender to palpation, no guarding, no appreciable organomegaly Ext: no gross muscle atrophy, no edema, no contractures Neuro: CN II-XI grossly intact, no focal neuro deficits Psych: Alert, oriented, appropriate affect A total of 45 minutes of time were spent preparing this complex discharge summary . Patient Condition at Discharge: Stable Plan - Discharge Summary New Discharge Prescriptions: New Cephalexin [Keflex] 500 mg PO Q12HR 5 Days #10 cap Ammonium Lactate Lotion [Lac-Hydrin 12% Lotion] 1 applic TOPICAL BID ml Continue Zolpidem [Ambien] 10 mg PO HS PRN PRN Reason: Insomnia Albuterol Sulfate [Proair Hfa] 2 puff INHALATION RT-Q4H PRN PRN Reason: Shortness Of Breath metFORMIN HCL 500 mg PO AC-BID hydrOXYzine HCL 25 mg PO TID PRN PRN Reason: Anxiety Potassium Chloride ER [K-Dur 10] 20 meq PO DAILY Omeprazole [PriLOSEC] 20 mg PO DAILY Hydrochlorothiazide [hydroCHLOROthiazide] 12.5 mg PO DAILY clonazePAM [KlonoPIN] 1 mg PO TID Buprenorphine HCl/Naloxone HCl [Suboxone 8 mg-2 mg Sl Film] 1 film SL TID Atorvastatin [Lipitor] 40 mg PO DAILY Aspirin 81 mg PO DAILY Vilazodone HCl [Viibryd] 20 mg PO DAILY Propranolol HCl 120 mg PO BID Brexpiprazole [Rexulti] 4 mg PO DAILY Gabapentin 800 mg PO QID Furosemide [Lasix] 40 mg PO DAILY Diazepam [Valium] 5 mg PO Q8H PRN PRN Reason: back pain Amitriptyline HCl [Elavil] 100 mg PO HS Discharge Medication List Albuterol Sulfate [Proair Hfa] 2 puff INHALATION RT-Q4H PRN 02/13/21 [History] Amitriptyline HCl [Elavil] 100 mg PO HS 02/13/21 [History] Aspirin 81 mg PO DAILY 02/13/21 [History] Atorvastatin [Lipitor] 40 mg PO DAILY 02/13/21 [History] Brexpiprazole [Rexulti] 4 mg PO DAILY 02/13/21 [History] Buprenorphine HCl/Naloxone HCl [Suboxone 8 mg-2 mg Sl Film] 1 film SL TID 02/13/21 [History] Diazepam [Valium] 5 mg PO Q8H PRN 02/13/21 [History] Furosemide [Lasix] 40 mg PO DAILY 02/13/21 [History] Gabapentin 800 mg PO QID 02/13/21 [History] Hydrochlorothiazide [hydroCHLOROthiazide] 12.5 mg PO DAILY 02/13/21 [History] Omeprazole [PriLOSEC] 20 mg PO DAILY 02/13/21 [History] Potassium Chloride ER [K-Dur 10] 20 meq PO DAILY 02/13/21 [History] Propranolol HCl 120 mg PO BID 02/13/21 [History] Vilazodone HCl [Viibryd] 20 mg PO DAILY 02/13/21 [History] Zolpidem [Ambien] 10 mg PO HS PRN 02/13/21 [History] clonazePAM [KlonoPIN] 1 mg PO TID 02/13/21 [History] hydrOXYzine HCL 25 mg PO TID PRN 02/13/21 [History] metFORMIN HCL 500 mg PO AC-BID 02/13/21 [History] Ammonium Lactate Lotion [Lac-Hydrin 12% Lotion] 1 applic TOPICAL BID ml 02/17/21 [Rx] Cephalexin [Keflex] 500 mg PO Q12HR 5 Days #10 cap 02/17/21 [Rx] Follow up Appointment(s)/Referral(s): Nonstaff,Physician [Primary Care Provider] - 1-2 days Patient Instructions/Handouts: Cellulitis (DC), Peripheral Vascular Disease (DC), Type 2 Diabetes Management for Adults (DC) Activity/Diet/Wound Care/Special Instructions: Activity: as tolerated Diet: heart healthy, carb consistent Discharge Disposition: HOME SELF-CARE
== END 2021-02-17 11:43 | disposition home or self-care (01) | DRG 602 ==
LOC: EC 19:32 → 6NMEDSUR 02-14 00:28 → OBSVTOIN 02-16 09:05
PROVIDERS: ADMIT Internal Medicine; ATTEND Internal Medicine
DX: L03.115 Cellulitis of right lower limb (principal); J96.01 Acute respiratory failure with hypoxia; E66.2 Morbid (severe) obesity with alveolar hypoventilation; F11.20 Opioid dependence, uncomplicated; F13.20 Sedative, hypnotic or anxiolytic dependence, uncomplicated; J81.1 Chronic pulmonary edema; J98.11 Atelectasis; Z68.44 Body mass index [BMI] 60.0-69.9, adult; L03.116 Cellulitis of left lower limb; Z20.822 Contact with and (suspected) exposure to COVID-19; I10 Essential (primary) hypertension; E11.42 Type 2 diabetes mellitus with diabetic polyneuropathy; E11.65 Type 2 diabetes mellitus with hyperglycemia; E78.5 Hyperlipidemia, unspecified; E87.70 Fluid overload, unspecified; F17.210 Nicotine dependence, cigarettes, uncomplicated; F20.9 Schizophrenia, unspecified; F31.9 Bipolar disorder, unspecified; F41.0 Panic disorder [episodic paroxysmal anxiety]; I87.8 Other specified disorders of veins; J41.0 Simple chronic bronchitis; Z79.82 Long term (current) use of aspirin; Z79.84 Long term (current) use of oral hypoglycemic drugs; Z79.899 Other long term (current) drug therapy; Z88.8 Allergy status to other drugs, medicaments and biological substances; Z98.51 Tubal ligation status; Z90.49 Acquired absence of other specified parts of digestive tract
CPT/HCPCS: 36415; 71046; 71275; 80048; 80053; 81001; 83605; 84145; 84484; 85025; 85379; 85610; 85652; 85730; 86140; 87040; 87635; 93306; 93970; 94760; 96361; 96365; 96368; 99285

== ENCOUNTER 2021-02-19 13:03 | Inpatient (IN) | payer OTHER ==
--- NOTE | 2021-02-19 13:34 | ED ---
General Adult HPI - General Chief complaint: Shortness of Breath Stated complaint: SOB and leg pain Time Seen by Provider: 02/19/21 13:15 Source: patient, EMS, RN notes reviewed, old records reviewed Mode of arrival: EMS Limitations: no limitations - History of Present Illness Initial comments: This is a 40-year-old female with a past medical history significant for chronic lower leg cellulitis. Patient was admitted to the hospital recently and disch arged 2 days ago after she was treated for cellulitis. Patient also was worked up for shortness of breath that time and had a CT of the chest and lab work and there was no reason found for shortness of breath. Patient comes back today because she again is complaining shortness of breath and she has bilateral leg pain which she states is chronic but she was in a rehab facility for benzodiazepine abuse and they wouldn't give her anything for the pain. Patient denies any fever or chills. Patient states she recently tested negative for COVID. Patient denies having the COVID vaccine. Patient denies any cough. Patient denies chest pain or palpitations. I placed the patient on room air nature had a good waveform the patient was oxygenating between 91 and 92% . - Related Data Home Medications Medication Instructions Recorded Confirmed Albuterol Sulfate [Proair Hfa] 2 puff INHALATION RT-Q4H PRN 02/13/21 02/19/21 Amitriptyline HCl [Elavil] 100 mg PO HS@2100 02/13/21 02/19/21 Aspirin 81 mg PO DAILY@0702/13/21 02/19/21 Atorvastatin [Lipitor] 40 mg PO HS 02/13/21 02/19/21 Brexpiprazole [Rexulti] 4 mg PO DAILY 02/13/21 02/19/21 Buprenorphine HCl/Naloxone HCl 1 film SL BID 02/13/21 02/19/21 [Suboxone 8 mg-2 mg Sl Film] Furosemide [Lasix] 40 mg PO DAILY@69902/13/21 02/19/21 Hydrochlorothiazide 12.5 mg PO DAILY@69902/13/21 02/19/21 [hydroCHLOROthiazide] Omeprazole [PriLOSEC] 20 mg PO DAILY 02/13/21 02/19/21 Potassium Chloride ER [K-Dur 10] 10 meq PO BID 02/13/21 02/19/21 Propranolol HCl 120 mg PO BID 02/13/21 02/19/21 Vilazodone HCl [Viibryd] 20 mg PO DAILY 02/13/21 02/19/21 metFORMIN HCL 500 mg PO AC-BID 02/13/21 02/19/21 Acetaminophen [Tylenol Arthritis] 650 mg PO Q4H PRN 02/19/21 02/19/21 Calcium/Magnesium/Zinc 1 tab PO TID PRN 02/19/21 02/19/21 [Fesgcug-Rhuvlmyyy-Nueb Tablet] Chlorpheniramine Maleate 4 mg PO Q4H PRN 02/19/21 02/19/21 Ibuprofen [Motrin Ib] 600 mg PO Q6H PRN 02/19/21 02/19/21 cloNIDine HCL [Catapres] 0.1 mg PO Q4H PRN 02/19/21 02/19/21 ondansetron HCL [Zofran] 8 mg PO Q6H PRN 02/19/21 02/19/21 Previous Rx's Medication Instructions Recorded Cephalexin [Keflex] 500 mg PO Q12HR 5 Days #10 cap 02/17/21 Allergies Allergy/AdvReac Type Severity Reaction Status Date / Time metoclopramide [From Reglan] AdvReac Unknown Verified 02/19/21 13:35 sumatriptan [From Imitrex] AdvReac Unknown Verified 02/19/21 13:35 Review of Systems ROS Statement: Those systems with pertinent positive or pertinent negative responses have been documented in the HPI. ROS Other: All systems not noted in ROS Statement are negative. Past Medical History Past Medical History: Diabetes Mellitus, Hyperlipidemia, Hypertension History of Any Multi-Drug Resistant Organisms: None Reported Past Surgical History: Cholecystectomy, Ear Surgery, Tubal Ligation Additional Past Surgical History / Comment(s): Cyst removal from ovary. Past Psychological History: Anxiety, Bipolar, Panic Disorder, Schizophrenia Smoking Status: Current every day smoker Past Alcohol Use History: None Reported Past Drug Use History: Prescription Drug Abuse General Exam - General Exam Comments Initial Comments: GENERAL: Patient is well-developed and well-nourished. Patient is nontoxic and well- hydrated and is in no acute distress. ENT: Neck is soft and supple. No significant lymphadenopathy is noted. Oropharynx is clear. Moist mucous membranes. Neck has full range of motion without eliciting any pain. EYES: The sclera were anicteric and conjunctiva were pink and moist. Extraocular movements were intact and pupils were equal round and reactive to light. Eyelids were unremarkable. PULMONARY: Unlabored respirations. Good breath sounds bilaterally. No audible rales rhonchi or wheezing was noted. CARDIOVASCULAR: There is a regular rate and rhythm without any murmurs gallops or rubs. ABDOMEN: Soft and nontender with normal bowel sounds. SKIN: Skin is clear with no lesions or rashes and otherwise unremarkable. NEUROLOGIC: Patient is alert and oriented x3. Cranial nerves II through XII are grossly intact. Motor and sensory are also intact. Normal speech, volume and content. Symmetrical smile. MUSCULOSKELETAL: Normal extremities with adequate strength and full range of motion. Chronic cellulitis no erythema noted. LYMPHATICS: No significant lymphadenopathy is noted PSYCHIATRIC: Normal psychiatric evaluation. Limitations: no limitations Course Vital Signs 02/19/21 02/19/21 02/19/21 13:14 13:19 13:21 Temperature 97.9 F Pulse Rate 92 Respiratory 22 20 24 Rate Blood Pressure 139/73 O2 Sat by Pulse 89 L 93 L Oximetry 02/19/21 14:19 Temperature Pulse Rate Respiratory 20 Rate Blood Pressure O2 Sat by Pulse 93 L Oximetry Medical Decision Making - Medical Decision Making EKG shows normal sinus rhythm at 85 bpm IN interval 292 QRS is 114 QT interval 424 QTC is 504. Patient's EKG shows no ST segment elevation or depression. Chest x-ray shows mild pulmonary edema I gave the patient Lasix in the emergency department. I spoke with because he agreed to admit the patient admitted the patient wrote admitting orders. - Lab Data Result diagrams: 02/19/21 13:30 02/19/21 13:34 Lab Results 02/19/21 02/19/21 02/19/21 Range/Units 13:30 13:30 13:30 WBC 11.4 H (3.8-10.6) k/uL RBC 4.77 (3.80-5.40) m/uL Hgb 13.9 (11.4-16.0) gm/dL Hct 42.2 (34.0-46.0) % MCV 88.4 (80.0-100.0) fL MCH 29.0 (25.0-35.0) pg MCHC 32.8 (31.0-37.0) g/dL RDW 15.3 (11.5-15.5) % Plt Count 395 (150-450) k/uL MPV 7.4 Neutrophils % 74 % Lymphocytes % 16 % Monocytes % 4 % Eosinophils % 5 % Basophils % 0 % Neutrophils # 8.4 H (1.3-7.7) k/uL Lymphocytes # 1.8 (1.0-4.8) k/uL Monocytes # 0.4 (0-1.0) k/uL Eosinophils # 0.6 (0-0.7) k/uL Basophils # 0.1 (0-0.2) k/uL PT (9.0-12.0) sec INR (<1.2) APTT (22.0-30.0) sec Sodium (137-145) mmol/L Potassium (3.5-5.1) mmol/L Chloride (98-107) mmol/L Carbon Dioxide (22-30) mmol/L Anion Gap mmol/L BUN (7-17) mg/dL Creatinine (0.52-1.04) mg/dL Est GFR (CKD-EPI)AfAm (>60 ml/min/1.73 sqM) Est GFR (CKD-EPI)NonAf (>60 ml/min/1.73 sqM) Glucose (74-99) mg/dL Calcium (8.4-10.2) mg/dL Total Bilirubin (0.2-1.3) mg/dL AST (14-36) U/L ALT (4-34) U/L Alkaline Phosphatase (38-126) U/L Troponin I (0.000-0.034) ng/mL NT-Pro-B Natriuret Pep 559 pg/mL Total Protein (6.3-8.2) g/dL Albumin (3.5-5.0) g/dL Coronavirus (PCR) Not Detected (Not Detectd) 02/19/21 02/19/21 02/19/21 Range/Units 13:34 13:34 13:34 WBC (3.8-10.6) k/uL RBC (3.80-5.40) m/uL Hgb (11.4-16.0) gm/dL Hct (34.0-46.0) % MCV (80.0-100.0) fL MCH (25.0-35.0) pg MCHC (31.0-37.0) g/dL RDW (11.5-15.5) % Plt Count (150-450) k/uL MPV Neutrophils % % Lymphocytes % % Monocytes % % Eosinophils % % Basophils % % Neutrophils # (1.3-7.7) k/uL Lymphocytes # (1.0-4.8) k/uL Monocytes # (0-1.0) k/uL Eosinophils # (0-0.7) k/uL Basophils # (0-0.2) k/uL PT 10.6 (9.0-12.0) sec INR 1.0 (<1.2) APTT 22.8 (22.0-30.0) sec Sodium 139 (137-145) mmol/L Potassium 4.1 (3.5-5.1) mmol/L Chloride 98 (98-107) mmol/L Carbon Dioxide 31 H (22-30) mmol/L Anion Gap 10 mmol/L BUN 11 (7-17) mg/dL Creatinine 0.81 (0.52-1.04) mg/dL Est GFR (CKD-EPI)AfAm >90 (>60 ml/min/1.73 sqM) Est GFR (CKD-EPI)NonAf >90 (>60 ml/min/1.73 sqM) Glucose 102 H (74-99) mg/dL Calcium 9.7 (8.4-10.2) mg/dL Total Bilirubin 0.7 (0.2-1.3) mg/dL AST 25 (14-36) U/L ALT 17 (4-34) U/L Alkaline Phosphatase 153 H (38-126) U/L Troponin I <0.012 (0.000-0.034) ng/mL NT-Pro-B Natriuret Pep pg/mL Total Protein 7.5 (6.3-8.2) g/dL Albumin 4.1 (3.5-5.0) g/dL Coronavirus (PCR) (Not Detectd) Disposition Clinical Impression: Acute pulmonary edema, Chronic cellulitis Disposition: ADMITTED IP TO THIS HOSP Referrals: None,Stated [Primary Care Provider] - 1-2 days Time of Disposition: 15:24
[2021-02-19 13:50] LABS: Basophils # (A) 0.1 k/uL (0-0.2); Basophils % (A) 0 %; Eosinophils # (A) 0.6 k/uL (0-0.7); Eosinophils % (A) 5 %; HCT 42.2 % (34.0-46.0); HGB 13.9 gm/dL (11.4-16.0); Lymphocytes # (A) 1.8 k/uL (1.0-4.8); Lymphocytes % (A) 16 %; MCHC 32.8 g/dL (31.0-37.0); MCV 88.4 fL (80.0-100.0); Mean Platelet Volume 7.4; Monocytes # (A) 0.4 k/uL (0-1.0); Monocytes % (A) 4 %; Neutrophils # (A) 8.4 k/uL (1.3-7.7); Neutrophils % (A) 74 %; Platelet Count 395 k/uL (150-450); RBC 4.77 m/uL (3.80-5.40); RDW 15.3 % (11.5-15.5); WBC 11.4 k/uL (3.8-10.6)
[2021-02-19 14:02] LABS: ALT 17 U/L (4-34); AST 25 U/L (14-36); African American GFR (CKD) >90 (>60 ml/min/1.73 sqM); Albumin 4.1 g/dL (3.5-5.0); Alkaline Phosphatase 153 U/L (38-126); Anion Gap 10 mmol/L; Blood Urea Nitrogen 11 mg/dL (7-17); Calcium 9.7 mg/dL (8.4-10.2); Carbon Dioxide 31 mmol/L (22-30); Chloride 98 mmol/L (98-107); Glucose 102 mg/dL (74-99); Non-African American GFR(CKD) >90 (>60 ml/min/1.73 sqM); Potassium 4.1 mmol/L (3.5-5.1); Sodium 139 mmol/L (137-145); Total Bilirubin 0.7 mg/dL (0.2-1.3); Total Protein 7.5 g/dL (6.3-8.2)
[2021-02-19 14:04] LABS: Partial Thromboplastin Time 22.8 sec (22.0-30.0); Prothrombin Time 10.6 sec (9.0-12.0)
--- NOTE | 2021-02-19 14:31 | XR ---
EXAMINATION TYPE: XR chest 2V DATE OF EXAM: 02/19/2021 COMPARISON: CXR 6 days ago. CTA Chest 5 days ago. HISTORY: IVAN. TECHNIQUE: Frontal and lateral views of the chest are obtained. FINDINGS: Suboptimal study due to large body habitus. There is cardiomegaly with mild central vascula r congestion redemonstrated. No pleural effusions or pneumothorax seen bilaterally. The osseous str uctures are intact. IMPRESSION: Cardiomegaly with suspected mild central vascular congestion. Correlate for CHF exacerba tion. No significant change from most recent studies.
[2021-02-19] MEDS ORDERED: FUROSEMIDE 10 MG/ML 4 ML VIAL IV STA (14:51)
[2021-02-19 17:31] LABS: Glucose,Whole Blood 102 mg/dL (75-99)
[2021-02-19] MEDS ORDERED: ALBUTEROL NEBULIZED 2.5 MG/3 ML INHALATION PRN (18:02)
[2021-02-19] MEDS ORDERED: ONDANSETRON 4 MG/2 ML VIAL IVP PRN (18:08)
[2021-02-19] MEDS: NON FORMULARY DRUG (Buprenorphine Hcl/Naloxone Hcl [Suboxone 8 Mg-2 Mg Sl Film] 1 EACH Fil SUBLINGUAL SCH (19:40)
[2021-02-19 20:17] LABS: Glucose,Whole Blood 99 mg/dL (75-99)
[2021-02-19] MEDS ORDERED: diphenhydrAMINE 25 MG CAP PO PRN (20:44)
[2021-02-19] MEDS ORDERED: NON FORMULARY DRUG (Calcium/Magnesium/Zinc [Calcium-Magnesium-Zinc Tablet] 1 EACH Tablet) PO PRN (20:44)
[2021-02-19] MEDS ORDERED: ONDANSETRON 4 MG TAB PO PRN (20:44)
[2021-02-19] MEDS: INSULIN ASPART (NovoLOG) 100 UNIT/ML VIAL SQ SCH (21:02)
[2021-02-19] MEDS: AMITRIPTYLINE HCL 50 MG TAB PO SCH (21:09)
[2021-02-19] MEDS: NICOTINE 14MG/24HR PATCH TRANSDERM SCH (21:10)
[2021-02-19] MEDS: CEPHALEXIN 500 MG CAP PO SCH (21:10)
[2021-02-19] MEDS: POTASSIUM CHLORIDE ER 10 MEQ TAB.ER.PRT PO SCH (21:10)
[2021-02-19] MEDS: HEPARIN SODIUM,PORCINE/PF 5,000 UNIT/0.5 ML SYRINGE SQ SCH (21:10)
[2021-02-19] MEDS: CHOLESTYRAMINE (WITH SUGAR) 4 GM PACKET PO SCH (21:10)
[2021-02-19] MEDS: ATORVASTATIN 40 MG TAB PO SCH (21:10)
[2021-02-19] MEDS: PROPRANOLOL 40 MG TAB PO SCH (21:10)
[2021-02-19] MEDS: IBUPROFEN 600 MG TAB PO PRN (21:10)
--- NOTE | 2021-02-19 22:01 | HP ---
HISTORY AND PHYSICAL CHIEF COMPLAINTS: Shortness of breath as well as diarrhea. HISTORY OF PRESENT ILLNESS: This 40-year-old woman with a past medical history of diabetes mellitus, hypertension, hyperlipidemia, history of cholecystectomy, history of anxiety, bipolar, panic, schizophrenia, being followed by a primary physician in [place] in the [facility], was getting rehab for benzo addiction. The patient apparently had shortness of breath. The patient also had leg cellulitis and the patient was taking Keflex. The patient had some diarrhea also. The patient patient came to [facility] and was admitted for further evaluation and treatment. Chest x- ray showed evidence of CHF. There is no history of any fever, rigors or chills. No history of headache, loss of consciousness, seizures at this time. PAST MEDICAL HISTORY: Diabetes mellitus, hypertension, hyperlipidemia, cholecystectomy, recent cellulitis. MEDICATIONS: Home medications are Zofran, metformin, Catapres, , propranolol, K-Dur, Prilosec, Motrin, hydrochlorothiazide, Lasix, chlorpheniramine, Keflex, Suboxone, , Lipitor, aspirin, Elavil, ProAir, Tylenol. ALLERGIES: REGLAN and IMITREX. FAMILY HISTORY: History of in the family. SOCIAL HISTORY: History of smoking. No history of alcohol intake. Prescription drug abuse. REVIEW OF SYSTEMS: ENT: No diminished hearing. No diminished vision. CARDIOVASCULAR SYSTEM: As mentioned earlier. RESPIRATORY SYSTEM: As mentioned earlier. GI: As mentioned earlier. : No dysuria. NERVOUS SYSTEM: No numbness, weakness. ALLERGY/IMMUNOLOGY: No asthma or hay fever. MUSCULOSKELETAL: As mentioned earlier. HEMATOLOGY/ONCOLOGY: No history of anemia. ENDOCRINE: As mentioned earlier. CONSTITUTIONAL: As mentioned earlier. DERMATOLOGY: As mentioned earlier. RHEUMATOLOGY: Negative. PSYCHIATRY: As mentioned earlier. PHYSICAL EXAMINATION: Patient alert and oriented x3. Pulse is 99, blood pressure 136/83, respiration 18, temperature 98.3, pulse ox 91% on room air. HEENT: Conjunctivae normal. Oral mucosa moist. NECK: No jugular venous distention. No carotid bruit. No lymph node enlargement. Neck is obese. CARDIOVASCULAR SYSTEM: S1, S2 muffled. No S3. No S4. RESPIRATORY: Breath sounds diminished at the bases. Bilateral scattered rhonchi and crackles. Expiratory wheezing also present. ABDOMEN: Soft, nontender. No mass palpable. LEGS: Bilateral leg edema. Bilateral leg cellulitis; healing also at this time. Pulses felt normally. NERVOUS SYSTEM: Higher functions as mentioned earlier. Moves all 4 limbs. No focal motor or sensory deficit. LYMPHATICS: No lymph node palpable in neck, axillae or groin. SKIN: No ulcer, rash, bleeding. JOINTS: No active deforming arthropathy. LABS: WBC 11.4, hemoglobin 13.9. Glucose 102, alkaline phosphatase 153. Chest x-ray reviewed; possible CHF. ASSESSMENT: 1. Shortness of breath for evaluation. Possible CHF, acute exacerbation, ejection fraction unknown. 2. Elevated white count. 3. Diabetes mellitus, type 2. 4. Hypertension. 5. Hyperlipidemia. 6. Cholecystectomy. 7. Diarrhea, possibly secondary to antibiotic induced. Rule out C difficile colitis. 8. Benzodiazepine addiction. 9. Anxiety, bipolar, panic disorder and schizophrenia. 10.Continued ongoing nicotine dependence. 11.Morbid obesity with body mass index of 65.7. 12.Chronic venous insufficiency of both bilateral legs. 13.FULL CODE. RECOMMENDATIONS AND DISCUSSION: In this 40-year-old woman who presented with multiple complex medical issues, we will monitor the patient closely. I would recommend intravenous diuretics. Consult Cardiology. A 2D echo with Doppler. The EKG which I reviewed showed nonspecific ST-T changes and axis deviation, possibly secondary to obesity, and incomplete right bundle branch block pattern in V1. Overall prognosis is guarded because of the multiple complex medical issues. Further recommendations to follow. MMODL / IJN: [id number] / MTDD
[2021-02-19] MEDS: FUROSEMIDE 10 MG/ML 4 ML VIAL IV SCH (23:03)
[2021-02-20] MEDS: ACETAMINOPHEN TAB 325 MG TAB PO PRN ×3 (01:19→16:13)
[2021-02-20] MEDS: cloNIDine HCL 0.1 MG TAB PO PRN ×2 (01:21→19:56)
[2021-02-20] MEDS: IBUPROFEN 600 MG TAB PO PRN ×3 (05:27→19:56)
[2021-02-20 06:36] LABS: Appearance,Urine Clear (Clear); Bilirubin,Urine Negative (Negative); Blood,Urine Negative (Negative); Color,Urine Yellow; Glucose,Urine (UA) Negative (Negative); Ketones,Urine Negative (Negative); Leukocyte Esterase,Urine Small (Negative); Mucus,Urine Rare /hpf; Nitrite,Urine Negative (Negative); PH, Urine 6.5 (5.0-8.0); Protein,Urine Negative (Negative); RBC,Urine 1 /hpf (0-5); Specific Gravity,Urine 1.016 (1.001-1.035); Squamous Epithelial Cell,Urine 3 /hpf (0-4); Urobilinogen,Urine <2.0 mg/dL (<2.0); WBC,Urine <1 /hpf (0-5)
[2021-02-20 07:04] LABS: Glucose,Whole Blood 113 mg/dL (75-99)
[2021-02-20] MEDS: INSULIN ASPART (NovoLOG) 100 UNIT/ML VIAL SQ SCH ×4 (07:09→20:40)
[2021-02-20] MEDS: FUROSEMIDE 10 MG/ML 4 ML VIAL IV SCH ×2 (08:00→16:16)
[2021-02-20] MEDS: ASPIRIN 81 MG PO SCH (08:00)
[2021-02-20] MEDS: PANTOPRAZOLE 40 MG TABLET PO SCH (08:00)
[2021-02-20] MEDS: metFORMIN 500 MG TAB PO SCH ×2 (08:00→17:07)
[2021-02-20] MEDS: hydroCHLOROthiazide 12.5 MG CAP PO SCH (08:00)
[2021-02-20] MEDS: NON FORMULARY DRUG (Buprenorphine Hcl/Naloxone Hcl [Suboxone 8 Mg-2 Mg Sl Film] 1 EACH Fil SUBLINGUAL SCH ×2 (08:29→16:13)
[2021-02-20 08:32] LABS: African American GFR (CKD) >90 (>60 ml/min/1.73 sqM); Anion Gap 8 mmol/L; Blood Urea Nitrogen 9 mg/dL (7-17); Calcium 9.3 mg/dL (8.4-10.2); Carbon Dioxide 34 mmol/L (22-30); Chloride 97 mmol/L (98-107); Glucose 96 mg/dL (74-99); Non-African American GFR(CKD) >90 (>60 ml/min/1.73 sqM); Potassium 3.5 mmol/L (3.5-5.1); Sodium 139 mmol/L (137-145)
[2021-02-20] MEDS: CHOLESTYRAMINE (WITH SUGAR) 4 GM PACKET PO SCH ×2 (08:38→22:01)
[2021-02-20] MEDS: CEPHALEXIN 500 MG CAP PO SCH ×2 (08:39→22:00)
[2021-02-20] MEDS: NICOTINE 14MG/24HR PATCH TRANSDERM SCH (08:39)
[2021-02-20] MEDS: HEPARIN SODIUM,PORCINE/PF 5,000 UNIT/0.5 ML SYRINGE SQ SCH ×2 (08:39→22:00)
[2021-02-20] MEDS: PROPRANOLOL 40 MG TAB PO SCH ×2 (08:39→22:01)
[2021-02-20] MEDS: POTASSIUM CHLORIDE ER 10 MEQ TAB.ER.PRT PO SCH ×2 (08:39→22:01)
[2021-02-20 10:44] LABS: Basophils # (A) 0.06 X 10*3/uL (0.00-0.10); Basophils % (A) 0.7 %; Eosinophils # (A) 0.49 X 10*3/uL (0.04-0.35); Eosinophils % (A) 5.6 %; HCT 41.4 % (37.2-46.3); HGB 12.4 g/dL (12.0-15.0); Lymphocytes # (A) 1.98 X 10*3/uL (0.90-5.00); Lymphocytes % (A) 22.8 %; MCH 27.3 pg (27.0-32.0); Monocytes # (A) 0.53 X 10*3/uL (0.20-1.00); Monocytes % (A) 6.1 %; Neutrophils # (A) 5.59 X 10*3/uL (1.80-7.70); Neutrophils % (A) 64.5 %; Platelet Count 369 X 10*3/uL (140-440); RBC 4.55 X 10*6/uL (4.10-5.20); RDW 16.1 % (11.5-14.5); WBC 8.68 X 10*3/uL (4.50-10.00)
[2021-02-20] MEDS: Vilazodone Hcl [Viibryd] 20 MG Tablet PO SCH (10:48)
[2021-02-20] MEDS: Brexpiprazole [Rexulti] 4 MG Tablet PO SCH (10:48)
[2021-02-20 12:00] LABS: Glucose,Whole Blood 117 mg/dL (75-99)
--- NOTE | 2021-02-20 12:15 | P.CRDCN ---
History of Present Illness History of present illness: HISTORY OF PRESENTING ILLNESS This is a pleasant 40-year-old female past medical history significant for diabetes mellitus, hypertension, dyslipidemia, schizophrenia, prescription drug dependence, chronic nicotine dependence and morbid obesity. 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 We have been asked to see in consultation for heart failure. She presented to the hospital as a transfer from [facility] where she is undergoing rehabilitation for benzodiazepine addiction. She states while there she was also being treated for lower extremity cellulitis. She states while there she was starting to feel short of breath and her pulse ox was dropping into the high 80s. She was sent here for further evaluation. On arrival her pulse ox was 89% on room air. She was given oxygen and started on IV diuretics. She is seen and examined resting comfortably in bed. She denies active shortness of breath but does admit to feeling short of breath with exertion to the bathroom. She denies chest pain, dizziness or palpitations. EKG reveals SR with incomplete right bundle branch block and poor R-wave progression. Chest xray reveals cardiomegaly with suspected mild central vascular congestoin. Laboratory data reviewed, WBC on admission 11.4 repeat today 8.6, hgb 12.4, plt 169, sodium 139, potassium 3.5, creatinine 0.78, troponin negative x1 and NTproBNP 559. Current daily cardiac medications include aspirin 81 mg daily, atorvastatin 40 mg daily, lasix 40 mg daily as needed for lower extremity swelling, propanolol 120 mg BID and clonidine PRN for anxiety. She was recently admitted and treated for cellulits and had an echo performed revealing preserved LV systolic function with EF 55-60%. REVIEW OF SYSTEMS At the time of my exam: CONSTITUTIONAL: Denies fever or chills. CARDIOVASCULAR: Complains of exertional shortness of breath. Denies chest pain, orthopnea, PND or palpitations. RESPIRATORY: Denies cough. GASTROINTESTINAL: Denies abdominal pain, diarrhea, constipation, nausea or vom iting. MUSCULOSKELETAL: Denies myalgias. NEUROLOGIC: Denies numbness, tingling, headache or weakness. ENDOCRINE: Denies fatigue, weight change, polydipsia or polyurina. GENITOURINARY: Denies burning, hematuria or urgency with micturation. HEMATOLOGIC: Denies history of anemia or bleeding. PHYSICAL EXAMINATION Blood pressure 106/66 heart rate 81 afebrile and maintaining oxygen saturation on nasal cannula. CONSTITUTIONAL: No apparent distress. Morbidly obese. HEENT: Head is normocephalic. Pupils are equal, round. Sclerae anicteric. Mucous membranes of the mouth are moist. No JVD. No carotid bruit. CHEST EXAMINATION: Lungs are clear to auscultation. No chest wall tenderness is noted on palpation or with deep breathing. HEART EXAMINATION: Regular rate and rhythm. S1, S2 heard. No murmurs, gallops or rub. ABDOMEN: Soft, nontender. EXTREMITIES: 2+ peripheral pulses, bilateral lower extremity venous stasis changes with non-pitting edema noted. No calf tenderness. NEUROLOGIC EXAMINATION: Patient is awake, alert and oriented x3. ASSESSMENT Hypoxia, could be component of acute diastolic heart failure with falsely low BNP due to morbid obesity Hypertension Dyslipidemia Schizophrenia History of benzodiazipine addiction Morbid obesity, BMI 65 PLAN Continue IV diuresis for another 24 hours. Document accurate intake and output along with daily weights. Follow renal function and electrolytes in the morning. Further recommendations to follow based on clinical course. Thank you kindly for this consultation. Nurse Practitioner note has been reviewed, I agree with a documented findings and plan of care. Patient was seen and examined. Past Medical History Past Medical History: Diabetes Mellitus, Hyperlipidemia, Hypertension History of Any Multi-Drug Resistant Organisms: None Reported Past Surgical History: Cholecystectomy, Ear Surgery, Tubal Ligation Additional Past Surgical History / Comment(s): Cyst removal from ovary. Past Psychological History: Anxiety, Bipolar, Panic Disorder, Schizophrenia Smoking Status: Current every day smoker Past Alcohol Use History: None Reported Past Drug Use History: Prescription Drug Abuse - Past Family History Mother Additional Family Medical History / Comment(s): hepatitis c Father Additional Family Medical History / Comment(s): lung cancer,hep c Medications and Allergies Home Medications Medication Instructions Recorded Confirmed Type Albuterol Sulfate [Proair Hfa] 2 puff INHALATION RT-Q4H PRN 02/13/21 02/19/21 History Amitriptyline HCl [Elavil] 100 mg PO HS@2100 02/13/21 02/19/21 History Aspirin 81 mg PO DAILY@0700 02/13/21 02/19/21 History Atorvastatin [Lipitor] 40 mg PO HS 02/13/21 02/19/21 History Brexpiprazole [Rexulti] 4 mg PO DAILY 02/13/21 02/19/21 History Buprenorphine HCl/Naloxone HCl 1 film SL BID 02/13/21 02/19/21 History [Suboxone 8 mg-2 mg Sl Film] Furosemide [Lasix] 40 mg PO DAILY@0700 02/13/21 02/19/21 History Hydrochlorothiazide 12.5 mg PO DAILY@0700 02/13/21 02/19/21 History [hydroCHLOROthiazide] Omeprazole [PriLOSEC] 20 mg PO DAILY 02/13/21 02/19/21 History Potassium Chloride ER [K-Dur 10] 10 meq PO BID 02/13/21 02/19/21 History Propranolol HCl 120 mg PO BID 02/13/21 02/19/21 History Vilazodone HCl [Viibryd] 20 mg PO DAILY 02/13/21 02/19/21 History metFORMIN HCL 500 mg PO AC-BID 02/13/21 02/19/21 History Cephalexin [Keflex] 500 mg PO Q12HR 5 Days #10 cap 02/17/21 02/19/21 Rx Acetaminophen [Tylenol Arthritis] 650 mg PO Q4H PRN 02/19/21 02/19/21 History Calcium/Magnesium/Zinc 1 tab PO TID PRN 02/19/21 02/19/21 History [Dgnxoew-Orzetkyxv-Aawu Tablet] Chlorpheniramine Maleate 4 mg PO Q4H PRN 02/19/21 02/19/21 History Ibuprofen [Motrin Ib] 600 mg PO Q6H PRN 02/19/21 02/19/21 History cloNIDine HCL [Catapres] 0.1 mg PO Q4H PRN 02/19/21 02/19/21 History ondansetron HCL [Zofran] 8 mg PO Q6H PRN 02/19/21 02/19/21 History Allergies Allergy/AdvReac Type Severity Reaction Status Date / Time metoclopramide [From Reglan] AdvReac Unknown Verified 02/19/21 13:35 sumatriptan [From Imitrex] AdvReac Unknown Verified 02/19/21 13:35 Physical Exam Vitals: Vital Signs Temp Pulse Pulse Resp BP BP Pulse Ox 02/20/21 09:55 94 L 02/20/21 02:18 98.1 F 81 17 106/66 94 L 02/19/21 20:00 98.3 F 99 18 136/83 91 L 02/19/21 16:38 97.9 F 88 20 139/73 93 L 02/19/21 16:00 20 93 L 02/19/21 15:00 20 93 L 02/19/21 14:19 20 93 L 02/19/21 13:21 24 02/19/21 13:19 20 93 L 02/19/21 13:14 97.9 F 92 22 139/73 89 L Intake and Output 02/19/21 02/20/21 02/20/21 22:59 06:59 14:59 Other: Voiding Method Toilet Toilet # Voids 2 # Bowel Movements 2 Weight 179.169 kg Results 02/20/21 06:31 02/20/21 06:31 Cardiac Enzymes 02/19/21 02/19/21 Range/Units 13:34 13:34 AST 25 (14-36) U/L Troponin I <0.012 (0.000-0.034) ng/mL Coagulation 02/19/21 Range/Units 13:34 PT 10.6 (9.0-12.0) sec APTT 22.8 (22.0-30.0) sec CBC 02/19/21 02/20/21 Range/Units 13:30 06:31 WBC 11.4 H 8.68 (3.8-10.6) k/uL RBC 4.77 4.55 (3.80-5.40) m/uL Hgb 13.9 12.4 (11.4-16.0) gm/dL Hct 42.2 41.4 (34.0-46.0) % Plt Count 395 369 (150-450) k/uL Comprehensive Metabolic Panel 02/19/21 02/20/21 Range/Units 13:34 06:31 Sodium 139 139 (137-145) mmol/L Potassium 4.1 3.5 (3.5-5.1) mmol/L Chloride 98 97 L (98-107) mmol/L Carbon Dioxide 31 H 34 H (22-30) mmol/L BUN 11 9 (7-17) mg/dL Creatinine 0.81 0.78 (0.52-1.04) mg/dL Glucose 102 H 96 (74-99) mg/dL Calcium 9.7 9.3 (8.4-10.2) mg/dL AST 25 (14-36) U/L ALT 17 (4-34) U/L Alkaline Phosphatase 153 H (38-126) U/L Total Protein 7.5 (6.3-8.2) g/dL Albumin 4.1 (3.5-5.0) g/dL Current Medications Generic Name Dose Route Start Last Admin Trade Name Freq PRN Reason Stop Dose Admin Acetaminophen 650 mg 02/19/21 18:02 02/20/21 10:50 Acetaminophen Tab 325 Mg Tab PO 650 mg Q4H PRN Administration Pain Albuterol Sulfate 2.5 mg 02/19/21 18:02 Albuterol Nebulized 2.5 Mg/3 Ml INHALATION RT-Q4H PRN Shortness Of Breath Amitriptyline HCl 100 mg 02/19/21 21:00 02/19/21 21:09 Amitriptyline Hcl 50 Mg Tab PO 100 mg HS@2100 BERTHA Administration Aspirin 81 mg 02/20/21 07:00 02/20/21 08:00 Aspirin 81 Mg PO 81 mg DAILY@0700 BERTHA Administration Atorvastatin Calcium 40 mg 02/19/21 21:00 02/19/21 21:10 Atorvastatin 40 Mg Tab PO 40 mg HS BERTHA Administration Cephalexin 500 mg 02/19/21 21:00 02/20/21 08:39 Cephalexin 500 Mg Cap PO 500 mg Q12HR BERTHA Administration Cholestyramine Resin 4 gm 02/19/21 21:00 02/20/21 08:38 Cholestyramine (With Sugar) 4 Gm Packet PO 4 gm BID BERTHA Administration Clonidine 0.1 mg 02/19/21 20:44 02/20/21 01:21 Clonidine Hcl 0.1 Mg Tab PO 0.1 mg Q4H PRN Administration Anxiety Diphenhydramine HCl 25 mg 02/19/21 20:44 Diphenhydramine 25 Mg Cap PO Q4H PRN Allergy Symptoms Furosemide 40 mg 02/20/21 00:00 02/20/21 08:00 Furosemide 10 Mg/Ml 4 Ml Vial IV 40 mg Q8HR BERTHA Administration Heparin Sodium (Porcine) 5,000 unit 02/19/21 21:00 02/20/21 08:39 Heparin Sodium,Porcine/Pf 5,000 Unit/0.5 Ml Syringe SQ 5,000 unit Q12HR BERTHA Administration Hydrochlorothiazide 12.5 mg 02/20/21 07:00 02/20/21 08:00 Hydrochlorothiazide 12.5 Mg Cap PO 12.5 mg DAILY@0700 BERTHA Administration Ibuprofen 600 mg 02/19/21 18:02 02/20/21 05:27 Ibuprofen 600 Mg Tab PO 600 mg Q6H PRN Administration Pain Insulin Aspart 0 unit 02/19/21 21:00 02/20/21 07:09 Insulin Aspart (Novolog) 100 Unit/Ml Vial SQ Not Given ACHS BERTHA Protocol Metformin HCl 500 mg 02/20/21 07:30 02/20/21 08:00 Metformin 500 Mg Tab PO 500 mg AC-BID BERTHA Administration Nicotine 1 patch 02/19/21 21:00 02/20/21 08:39 Nicotine 14mg/24hr Patch TRANSDERM 1 patch DAILY BERTHA Administration Vilazodone Hcl [ 20 mg 02/20/21 09:00 02/20/21 10:48 Viibryd] 20 Mg PO 20 mg Tablet DAILY BERTHA Administration Brexpiprazole [ 4 mg 02/20/21 09:00 02/20/21 10:48 Rexulti] 4 Mg Tablet PO 4 mg DAILY BERTHA Administration Non-Formulary Medication 1 film 02/20/21 16:00 Buprenorphine Hcl/Naloxone Hcl [Suboxone 8 Mg-2 Mg Sl Film] SUBLINGUAL 0630,1600 [facility] Ondansetron HCl 4 mg 02/19/21 18:08 Ondansetron 4 Mg/2 Ml Vial IVP Q6HR PRN Nausea And Vomiting Ondansetron HCl 8 mg 02/19/21 20:44 Ondansetron 4 Mg Tab PO Q6H PRN Nausea Pantoprazole Sodium 40 mg 02/20/21 07:30 02/20/21 08:00 Pantoprazole 40 Mg Tablet PO 40 mg AC-[id number] BERTHA Administration Potassium Chloride 10 meq 02/19/21 21:00 02/20/21 08:39 Potassium Chloride Er 10 Meq Tab.Er.Prt PO 10 meq BID BERTHA Administration Propranolol HCl 120 mg 02/19/21 21:00 02/20/21 08:39 Propranolol 40 Mg Tab PO 120 mg BID BERTHA Administration Intake and Output 02/19/21 02/20/21 02/20/21 22:59 06:59 14:59 Other: Voiding Method Toilet Toilet # Voids 2 # Bowel Movements 2 Weight 179.169 kg 02/20/21 06:31 02/20/21 06:31
[2021-02-20 15:33] VITALS: BMI 65.7
[2021-02-20 17:10] LABS: Glucose,Whole Blood 107 mg/dL (75-99)
[2021-02-20 20:28] LABS: Hemoglobin A1C 5.9 % (4.0-6.0)
[2021-02-20 20:36] LABS: Glucose,Whole Blood 106 mg/dL (75-99)
--- NOTE | 2021-02-20 21:06 | PN ---
PROGRESS NOTE DATE OF SERVICE: 02/20/2021. This 40-year-old woman who was admitted with shortness of breath is being evaluated for possible CHF. Patient being closely monitored at this time. The patient had recently finished rehab stint at [place]. The patient is being diuresed at this time. No chest pain. No palpitations. No fever. PHYSICAL EXAMINATION: Alert and oriented times three. Pulse 73. Blood pressure 105/68, respiration 17, temperature 97.4, pulse ox 97% on 3 L. HEENT: Conjunctivae normal. NECK: No JVD. CARDIOVASCULAR: S1, S2 muffled. RESPIRATION: Breath sounds diminished in the bases. A few scattered rhonchi. ABDOMEN: Soft. NERVOUS SYSTEM: No focal deficits. LABS: WBC 8.6, sodium 130, potassium 3.5, glucose noted. The intake/output is not available. ASSESSMENT: 1. Shortness of breath, possibly congestive heart failure acute exacerbation, ejection fraction unknown. 2. Elevated WBC. 3. Diabetes mellitus type 2. 4. Hypertension. 5. Hyperlipidemia. 6. History of cholecystectomy. 7. History of diarrhea possibly secondary to antibiotic induced rule out C difficile colitis. 8. Benzodiazepine addiction. 9. Anxiety, bipolar, panic disorder, schizophrenia. 10.Continued ongoing nicotine dependence. 11.Morbid obesity with body mass index of 65.7. 12.Chronic venous insufficiency both bilateral legs. 13.FULL CODE. RECOMMENDATIONS AND DISCUSSION: Recommend to continue current medications, management and symptomatic treatment. Continue with diuretics. Two-D echo reports are still not available. Otherwise, guarded prognosis. Repeat labs. Further recommendations. The patient is being diuresed at this time. MMODL / IJN: [id number] /
[2021-02-20] MEDS: AMITRIPTYLINE HCL 50 MG TAB PO SCH (22:01)
[2021-02-20] MEDS: ATORVASTATIN 40 MG TAB PO SCH (22:01)
[2021-02-20] MEDS: GABAPENTIN 400 MG CAP PO SCH (22:01)
[2021-02-21] MEDS: FUROSEMIDE 10 MG/ML 4 ML VIAL IV SCH ×3 (00:52→16:24)
[2021-02-21 06:40] LABS: Glucose,Whole Blood 100 mg/dL (75-99)
[2021-02-21] MEDS: NON FORMULARY DRUG (Buprenorphine Hcl/Naloxone Hcl [Suboxone 8 Mg-2 Mg Sl Film] 1 EACH Fil SUBLINGUAL SCH ×2 (07:20→16:24)
[2021-02-21] MEDS: HEPARIN SODIUM,PORCINE/PF 5,000 UNIT/0.5 ML SYRINGE SQ SCH ×2 (08:04→22:10)
[2021-02-21] MEDS: IBUPROFEN 600 MG TAB PO PRN ×2 (08:04→22:16)
[2021-02-21] MEDS: GABAPENTIN 400 MG CAP PO SCH ×4 (08:05→22:14)
[2021-02-21] MEDS: POTASSIUM CHLORIDE ER 10 MEQ TAB.ER.PRT PO SCH ×2 (08:05→22:10)
[2021-02-21] MEDS: hydroCHLOROthiazide 12.5 MG CAP PO SCH (08:05)
[2021-02-21] MEDS: ASPIRIN 81 MG PO SCH (08:05)
[2021-02-21] MEDS: PANTOPRAZOLE 40 MG TABLET PO SCH (08:05)
[2021-02-21] MEDS: metFORMIN 500 MG TAB PO SCH ×2 (08:05→17:30)
[2021-02-21] MEDS: CEPHALEXIN 500 MG CAP PO SCH ×2 (08:05→22:10)
[2021-02-21] MEDS: Vilazodone Hcl [Viibryd] 20 MG Tablet PO SCH (08:06)
[2021-02-21] MEDS: NICOTINE 14MG/24HR PATCH TRANSDERM SCH (08:06)
[2021-02-21] MEDS: CHOLESTYRAMINE (WITH SUGAR) 4 GM PACKET PO SCH ×2 (08:06→22:10)
[2021-02-21] MEDS: Brexpiprazole [Rexulti] 4 MG Tablet PO SCH (08:06)
[2021-02-21] MEDS: INSULIN ASPART (NovoLOG) 100 UNIT/ML VIAL SQ SCH ×4 (08:06→21:08)
[2021-02-21] MEDS: PROPRANOLOL 40 MG TAB PO SCH ×2 (08:08→22:10)
[2021-02-21] MEDS: ACETAMINOPHEN TAB 325 MG TAB PO PRN (10:40)
[2021-02-21 10:53] LABS: Glucose,Whole Blood 137 mg/dL (75-99)
[2021-02-21 12:00] LABS: Basophils % (A) 0 %; Eosinophils # (A) 0.4 k/uL (0-0.7); Eosinophils % (A) 4 %; HCT 42.1 % (34.0-46.0); HGB 13.6 gm/dL (11.4-16.0); Lymphocytes # (A) 1.4 k/uL (1.0-4.8); Lymphocytes % (A) 16 %; MCH 28.4 pg (25.0-35.0); MCHC 32.4 g/dL (31.0-37.0); MCV 87.6 fL (80.0-100.0); Mean Platelet Volume 6.9; Monocytes # (A) 0.3 k/uL (0-1.0); Monocytes % (A) 4 %; Neutrophils # (A) 6.3 k/uL (1.3-7.7); Neutrophils % (A) 73 %; Platelet Count 379 k/uL (150-450); WBC 8.7 k/uL (3.8-10.6)
[2021-02-21 12:14] LABS: African American GFR (CKD) >90 (>60 ml/min/1.73 sqM); Anion Gap 9 mmol/L; Blood Urea Nitrogen 10 mg/dL (7-17); Calcium 9.8 mg/dL (8.4-10.2); Carbon Dioxide 36 mmol/L (22-30); Chloride 95 mmol/L (98-107); Glucose 125 mg/dL (74-99); Non-African American GFR(CKD) 87 (>60 ml/min/1.73 sqM); Potassium 3.9 mmol/L (3.5-5.1); Sodium 140 mmol/L (137-145)
--- NOTE | 2021-02-21 15:29 | XR ---
EXAMINATION TYPE: XR chest 1V portable DATE OF EXAM: 02/21/2021 COMPARISON: 11/12/1620 HISTORY: Vertebra TECHNIQUE: FINDINGS: There is some minimal pulmonary congestion. Heart is enlarged. I see no definite pleural ef fusion. IMPRESSION: Mild pulmonary congestion and improved compared to old exam. No obvious heart failure.
[2021-02-21 17:00] LABS: Glucose,Whole Blood 108 mg/dL (75-99)
--- NOTE | 2021-02-21 17:43 | P.PN ---
Subjective HISTORY OF PRESENTING ILLNESS This is a pleasant 40-year-old female past medical history significant for diabetes mellitus, hypertension, dyslipidemia, schizophrenia, prescription drug dependence, chronic nicotine dependence and morbid obesity. She denies prior history of coronary artery disease or heart failure and does not follow in the office with a green building energy engineer. We have been asked to see in consultation for heart failure. She presented to the hospital as a transfer from [place] where she is undergoing rehabilitation for benzodiazepine addiction. She states while there she was also being treated for lower extremity cellulitis. She states while there she was starting to feel short of breath and her pulse ox was dropping into the high 80s. She was sent here for further evaluation. On arrival her pulse ox was 89% on room air. She was given oxygen and started on IV diuretics. She is seen and examined resting comfortably in bed. She denies active shortness of breath but does admit to feeling short of breath with exertion to the bathroom. She denies chest pain, dizziness or palpitations. EKG reveals SR with incomplete right bundle branch block and poor R-wave progression. Chest xray reveals cardiomegaly with suspected mild central vascular congestoin. Laboratory data reviewed, WBC on admission 11.4 repeat today 8.6, hgb 12.4, plt 169, sodium 139, potassium 3.5, creatinine 0.78, troponin negative x1 and NTproBNP 559. Current daily cardiac medications include aspirin 81 mg daily, atorvastatin 40 mg daily, lasix 40 mg daily as needed for lower extremity swelling, propanolol 120 mg BID and clonidine PRN for anxiety. She was recently admitted and treated for cellulits and had an echo performed revealing preserved LV systolic function with EF 55-60%. 02/21 Patient seen and examined. Patient admits she has had increased urine output with the IV Lasix however and accurate ins and outs. She denies any chest pain or pressure. She admits her lower extremities are still swollen. Creatinine remains stable. PHYSICAL EXAMINATION Vitals reviewed CONSTITUTIONAL: No apparent distress. Morbidly obese. HEENT: Head is normocephalic. Pupils are equal, round. Sclerae anicteric. Mucous membranes of the mouth are moist. No JVD. No carotid bruit. CHEST EXAMINATION: Lungs are clear to auscultation. No chest wall tenderness is noted on palpation or with deep breathing. HEART EXAMINATION: Regular rate and rhythm. S1, S2 heard. No murmurs, gallops or rub. ABDOMEN: Soft, nontender. EXTREMITIES: 2+ peripheral pulses, bilateral lower extremity venous stasis changes with non-pitting edema noted. No calf tenderness. NEUROLOGIC EXAMINATION: Patient is awake, alert and oriented x3. ASSESSMENT Acute on chronic diastolic heart failure Hypertension Dyslipidemia Schizophrenia History of benzodiazipine addiction Morbid obesity, BMI 65 PLAN Continue with IV diuresis and monitor response as appears to be having good clinical response. Continue to monitor ins and outs however and accurate. Continue to monitor kidney function. Hopeful discharge on Tuesday. Objective - Vital Signs Vital signs: Vital Signs Temp 97.6 F 02/21/21 14:00 Pulse 69 02/21/21 14:00 Resp 18 02/21/21 14:00 BP 105/66 02/21/21 14:00 Pulse Ox 91 L 02/21/21 14:00 Intake & Output 02/20/21 02/21/21 02/21/21 18:59 06:59 18:59 Output Total 220 Balance -220 Weight 179.169 kg 167 kg Output: Urine 220 Other: Voiding Method Toilet Toilet Toilet # Voids 1 - Labs CBC & Chem 7: 02/21/21 11:31 02/21/21 11:31 Labs: Abnormal Lab Results - Last 24 Hours (Table) 02/20/21 02/21/21 02/21/21 Range/Units 20:34 06:39 10:52 RDW (11.5-15.5) % Chloride (98-107) mmol/L Carbon Dioxide (22-30) mmol/L Glucose (74-99) mg/dL POC Glucose (mg/dL) 106 H 100 H 137 H (75-99) mg/dL 02/21/21 02/21/21 02/21/21 Range/Units 11:31 11:31 16:59 RDW 16.0 H (11.5-15.5) % Chloride 95 L (98-107) mmol/L Carbon Dioxide 36 H (22-30) mmol/L Glucose 125 H (74-99) mg/dL POC Glucose (mg/dL) 108 H (75-99) mg/dL
--- NOTE | 2021-02-21 18:57 | PN ---
PROGRESS NOTE DATE OF SERVICE: 02/21/2021 This 40-year-old woman who was admitted with CHF, acute exacerbation, is being closely monitored. Patient is being diuresed at this time. The most recent chest x-ray, which was reviewed personally by me, showed some cardiomegaly as well as increased bronchovascular markings. A 2D echo with Doppler which was done recently showed ejection fraction about 50% to 60%. No chest pain. No palpitations. No fever. The renal functions are acceptable at this time. PHYSICAL EXAMINATION: Alert and oriented x3. Pulse 69, blood pressure 105/60, respiration 18, temperature 97.6, pulse ox 91% on 2 L. HEENT: Conjunctivae normal. NECK: No jugular venous distention. CARDIOVASCULAR: S1, S2 muffled. RESPIRATION: Breath sounds diminished at the bases. A few rhonchi. No crackles. ABDOMEN: Soft. Obese. LEGS: No edema. No swelling. NERVOUS SYSTEM: No focal deficit. LABS: CBC within normal limits. BUN is 9 and creatinine 0.84. ASSESSMENT: 1. Congestive heart failure, acute exacerbation, with shortness of breath with acute on chronic diastolic dysfunction, ejection fraction 50% to 60%. 2. Elevated white count, present on admission, possibly reactive. 3. Diabetes mellitus, type 2. 4. Hypertension. 5. Hyperlipidemia. 6. History of cholecystectomy. 7. History of diarrhea, possibly antibiotic-induced. 8. Benzodiazepine addiction. 9. Anxiety, bipolar, panic disorder, schizophrenia. 10.Continued ongoing nicotine dependence. 11.Morbid obesity with body mass index of 65.7. 12.Chronic venous insufficiency of both bilateral legs. 13.FULL CODE. RECOMMENDATIONS AND DISCUSSION: I recommend to continue current medications, continue with symptomatic treatment. Limit fluid intake to 1200 mL per 24 hours and continue with IV diuretics. Closely follow with Cardiology. Prognosis guarded. Further recommendations to follow. MMODL / IJN: [id number] /
[2021-02-21 20:52] LABS: Glucose,Whole Blood 106 mg/dL (75-99)
[2021-02-21] MEDS: AMITRIPTYLINE HCL 50 MG TAB PO SCH (22:10)
[2021-02-21] MEDS: ATORVASTATIN 40 MG TAB PO SCH (22:10)
[2021-02-22] MEDS: FUROSEMIDE 10 MG/ML 4 ML VIAL IV SCH ×3 (00:36→16:12)
[2021-02-22] MEDS: ACETAMINOPHEN TAB 325 MG TAB PO PRN ×4 (00:36→20:29)
[2021-02-22] MEDS: IBUPROFEN 600 MG TAB PO PRN (06:05)
[2021-02-22] MEDS: NON FORMULARY DRUG (Buprenorphine Hcl/Naloxone Hcl [Suboxone 8 Mg-2 Mg Sl Film] 1 EACH Fil SUBLINGUAL SCH ×2 (06:05→16:09)
[2021-02-22 07:12] LABS: Glucose,Whole Blood 92 mg/dL (75-99)
[2021-02-22] MEDS: INSULIN ASPART (NovoLOG) 100 UNIT/ML VIAL SQ SCH ×4 (07:12→22:22)
[2021-02-22] MEDS: metFORMIN 500 MG TAB PO SCH ×2 (08:18→17:31)
[2021-02-22] MEDS: NICOTINE 14MG/24HR PATCH TRANSDERM SCH (08:18)
[2021-02-22] MEDS: HEPARIN SODIUM,PORCINE/PF 5,000 UNIT/0.5 ML SYRINGE SQ SCH ×2 (08:18→22:21)
[2021-02-22] MEDS: PANTOPRAZOLE 40 MG TABLET PO SCH (08:19)
[2021-02-22] MEDS: POTASSIUM CHLORIDE ER 10 MEQ TAB.ER.PRT PO SCH ×2 (08:19→22:21)
[2021-02-22] MEDS: hydroCHLOROthiazide 12.5 MG CAP PO SCH (08:19)
[2021-02-22] MEDS: GABAPENTIN 400 MG CAP PO SCH ×4 (08:19→22:21)
[2021-02-22] MEDS: CEPHALEXIN 500 MG CAP PO SCH ×2 (08:19→22:22)
[2021-02-22] MEDS: ASPIRIN 81 MG PO SCH (08:19)
[2021-02-22] MEDS: Vilazodone Hcl [Viibryd] 20 MG Tablet PO SCH (08:19)
[2021-02-22] MEDS: Brexpiprazole [Rexulti] 4 MG Tablet PO SCH (08:20)
[2021-02-22] MEDS: PROPRANOLOL 40 MG TAB PO SCH ×2 (08:20→22:21)
[2021-02-22] MEDS: CHOLESTYRAMINE (WITH SUGAR) 4 GM PACKET PO SCH ×2 (08:20→22:21)
[2021-02-22 11:40] LABS: Glucose,Whole Blood 118 mg/dL (75-99)
[2021-02-22 16:50] LABS: Glucose,Whole Blood 103 mg/dL (75-99)
--- NOTE | 2021-02-22 19:38 | PN ---
PROGRESS NOTE DATE OF SERVICE: 02/22/2021 This 40-year-old woman who was admitted with CHF acute exacerbation, had shortness of breath. No chest pain. No palpitations. No fever. PHYSICAL EXAMINATION: Alert and oriented x3. Pulse is 94, blood pressure 120/64, respiration 18, temperature 97.9, pulse ox 94% on room air. HEENT: Conjunctivae normal. Oral mucosa moist. NECK: No jugular venous distention. No lymph node enlargement. CARDIOVASCULAR: S1, S2, muffled. No S3, no S4, RESPIRATORY: Diminished breath sounds at the bases. ABDOMEN: Soft, nontender. LEGS: No edema, no swelling. NERVOUS SYSTEM: No focal deficits. LABS: Accu-Cheks noted. ASSESSMENT: 1. Congestive heart failure acute exacerbation with acute on chronic diastolic dysfunction, ejection fraction 55% to 60%. 2. Elevated WBC present on admission, possibly reactive. 3. Diabetes mellitus type 2. 4. Hypertension. 5. Hyperlipidemia. 6. History of cholecystectomy. 7. History of diarrhea, possibly antibiotic induced. 8. History of benzodiazepine addiction. 9. Anxiety, depression, panic disorder, schizophrenia. 10.Continued ongoing nicotine dependence. 11.Morbid obesity with body mass index of 65.7. 12.Chronic venous insufficiency of both legs. 13.FULL CODE. RECOMMENDATIONS: Recommend to continue current management and symptomatic treatment. Repeat labs. Continue the diuretics. Closely follow. Possible discharge in the next 24-48 hours. MMQUINL / LORE: [id number] /
[2021-02-22 20:42] LABS: Glucose,Whole Blood 102 mg/dL (75-99)
--- NOTE | 2021-02-22 21:16 | P.PN ---
Subjective HISTORY OF PRESENTING ILLNESS This is a pleasant 40-year-old female past medical history significant for diabetes mellitus, hypertension, dyslipidemia, schizophrenia, prescription drug dependence, chronic nicotine dependence and morbid obesity. She denies prior history of coronary artery disease or heart failure and does not follow in the office with a shipping clerk packing. We have been asked to see in consultation for heart failure. She presented to the hospital as a transfer from [place] where she is undergoing rehabilitation for benzodiazepine addiction. She states while there she was also being treated for lower extremity cellulitis. She states while there she was starting to feel short of breath and her pulse ox was dropping into the high 80s. She was sent here for further evaluation. On arrival her pulse ox was 89% on room air. She was given oxygen and started on IV diuretics. She is seen and examined resting comfortably in bed. She denies active shortness of breath but does admit to feeling short of breath with exertion to the bathroom. She denies chest pain, dizziness or palpitations. EKG reveals SR with incomplete right bundle branch block and poor R-wave progression. Chest xray reveals cardiomegaly with suspected mild central vascular congestoin. Laboratory data reviewed, WBC on admission 11.4 repeat today 8.6, hgb 12.4, plt 169, sodium 139, potassium 3.5, creatinine 0.78, troponin negative x1 and NTproBNP 559. Current daily cardiac medications include aspirin 81 mg daily, atorvastatin 40 mg daily, lasix 40 mg daily as needed for lower extremity swelling, propanolol 120 mg BID and clonidine PRN for anxiety. She was recently admitted and treated for cellulits and had an echo performed revealing preserved LV systolic function with EF 55-60%. 02/21 Patient seen and examined. Patient admits she has had increased urine output with the IV Lasix however and accurate ins and outs. She denies any chest pain or pressure. She admits her lower extremities are still swollen. Creatinine remains stable. 02/22 Patient seen and examined. Patient states she has been urinating slightly the mouth and Lasix however and accurate ins and outs. No lab work was performed today. PHYSICAL EXAMINATION Vitals reviewed CONSTITUTIONAL: No apparent distress. Morbidly obese. HEENT: Head is normocephalic. Pupils are equal, round. Sclerae anicteric. Mucous membranes of the mouth are moist. No JVD. No carotid bruit. CHEST EXAMINATION: Lungs are clear to auscultation. No chest wall tenderness is noted on palpation or with deep breathing. HEART EXAMINATION: Regular rate and rhythm. S1, S2 heard. No murmurs, gallops or rub. ABDOMEN: Soft, nontender. EXTREMITIES: 2+ peripheral pulses, bilateral lower extremity venous stasis changes with non-pitting edema noted. No calf tenderness. NEUROLOGIC EXAMINATION: Patient is awake, alert and oriented x3. ASSESSMENT Acute on chronic diastolic heart failure Hypertension Dyslipidemia Schizophrenia History of benzodiazipine addiction Morbid obesity, BMI 65 PLAN We will change to oral Lasix. Check blood work tomorrow. Hopeful discharge in next 24-48 hours. Objective - Vital Signs Vital signs: Vital Signs Temp 97.9 F 02/22/21 14:00 Pulse 94 02/22/21 14:00 Resp 18 02/22/21 14:00 BP 122/64 02/22/21 14:00 Pulse Ox 94 L 02/22/21 14:00 Intake & Output 02/22/21 02/22/21 02/23/21 06:59 18:59 06:59 Weight 168 kg Other: Voiding Method Toilet Toilet - Labs CBC & Chem 7: 02/21/21 11:31 02/21/21 11:31 Labs: Abnormal Lab Results - Last 24 Hours (Table) 02/22/21 02/22/21 02/22/21 Range/Units 11:37 16:48 20:41 POC Glucose (mg/dL) 118 H 103 H 102 H (75-99) mg/dL
[2021-02-22] MEDS: ATORVASTATIN 40 MG TAB PO SCH (22:21)
[2021-02-22] MEDS: AMITRIPTYLINE HCL 50 MG TAB PO SCH (22:21)
[2021-02-22 22:33] VITALS: RESP 17
[2021-02-23] MEDS: IBUPROFEN 600 MG TAB PO PRN (00:43)
[2021-02-23] MEDS: FUROSEMIDE 10 MG/ML 4 ML VIAL IV SCH ×2 (00:43→07:48)
[2021-02-23] MEDS: cloNIDine HCL 0.1 MG TAB PO PRN (01:53)
[2021-02-23 02:39] VITALS: TEMP 98.1
[2021-02-23] MEDS: ACETAMINOPHEN TAB 325 MG TAB PO PRN (06:03)
[2021-02-23] MEDS: NON FORMULARY DRUG (Buprenorphine Hcl/Naloxone Hcl [Suboxone 8 Mg-2 Mg Sl Film] 1 EACH Fil SUBLINGUAL SCH (06:04)
[2021-02-23 06:51] LABS: Glucose,Whole Blood 113 mg/dL (75-99)
[2021-02-23] MEDS: INSULIN ASPART (NovoLOG) 100 UNIT/ML VIAL SQ SCH ×2 (07:40→11:57)
[2021-02-23] MEDS: PANTOPRAZOLE 40 MG TABLET PO SCH (07:48)
[2021-02-23] MEDS: NICOTINE 14MG/24HR PATCH TRANSDERM SCH (07:48)
[2021-02-23] MEDS: hydroCHLOROthiazide 12.5 MG CAP PO SCH (07:48)
[2021-02-23] MEDS: ASPIRIN 81 MG PO SCH (07:48)
[2021-02-23] MEDS: metFORMIN 500 MG TAB PO SCH (07:48)
[2021-02-23] MEDS: PROPRANOLOL 40 MG TAB PO SCH (07:49)
[2021-02-23] MEDS: CHOLESTYRAMINE (WITH SUGAR) 4 GM PACKET PO SCH (07:49)
[2021-02-23] MEDS: Vilazodone Hcl [Viibryd] 20 MG Tablet PO SCH (07:49)
[2021-02-23] MEDS: HEPARIN SODIUM,PORCINE/PF 5,000 UNIT/0.5 ML SYRINGE SQ SCH (07:49)
[2021-02-23] MEDS: GABAPENTIN 400 MG CAP PO SCH ×2 (07:49→12:21)
[2021-02-23] MEDS: POTASSIUM CHLORIDE ER 10 MEQ TAB.ER.PRT PO SCH (07:49)
[2021-02-23] MEDS: Brexpiprazole [Rexulti] 4 MG Tablet PO SCH (07:49)
[2021-02-23 08:22] VITALS: BP 104/70; PULSE 66
[2021-02-23 09:12] LABS: Basophils # (A) 0.05 X 10*3/uL (0.00-0.10); Basophils % (A) 0.6 %; Eosinophils # (A) 0.47 X 10*3/uL (0.04-0.35); Eosinophils % (A) 5.2 %; HCT 46.8 % (37.2-46.3); HGB 14.2 g/dL (12.0-15.0); Lymphocytes # (A) 2.21 X 10*3/uL (0.90-5.00); Lymphocytes % (A) 24.5 %; MCH 27.6 pg (27.0-32.0); MCHC 30.3 g/dL (32.0-37.0); MCV 91.1 fL (80.0-97.0); Mean Platelet Volume 9.8 fL (9.5-12.2); Monocytes % (A) 6.6 %; Neutrophils # (A) 5.66 X 10*3/uL (1.80-7.70); Neutrophils % (A) 62.7 %; Platelet Count 363 X 10*3/uL (140-440); RBC 5.14 X 10*6/uL (4.10-5.20); RDW 16.2 % (11.5-14.5); WBC 9.03 X 10*3/uL (4.50-10.00)
[2021-02-23 09:56] LABS: Anion Gap 8.1 mmol/L (4.00-12.00); Calcium 9.6 mg/dL (8.7-10.3); Carbon Dioxide 33.9 mmol/L (21.6-31.8); Non-African American GFR(CKD) 69.9 (60.0-200.0); Potassium 4.1 mmol/L (3.5-5.5)
--- NOTE | 2021-02-23 10:33 | P.PN ---
Subjective HISTORY OF PRESENTING ILLNESS This is a pleasant 40-year-old female past medical history significant for diabetes mellitus, hypertension, dyslipidemia, schizophrenia, prescription drug dependence, chronic nicotine dependence and morbid obesity. She denies prior history of coronary artery disease or heart failure and does not follow in the office with a telecommunications manager. We have been asked to see in consultation for heart failure. She presented to the hospital as a transfer from [place] where she is undergoing rehabilitation for benzodiazepine addiction. She states while there she was also being treated for lower extremity cellulitis. She states while there she was starting to feel short of breath and her pulse ox was dropping into the high 80s. She was sent here for further evaluation. EKG revealed SR with incomplete right bundle branch block and poor R-wave progression. Chest xray revealed cardiomegaly with suspected mild central vascular congestoin. She was recently admitted 02/14/2021 and treated for cellulits and had an echo performed revealing preserved LV systolic function with EF 55-60%. Patient seen at bedside, no acute distress. She denies any shortness of breath, chest pain, lightheadedness, dizziness. I/Os not accurately documented, but patient's weight has decreased. She has no significant lower extremity edema. Blood pressure 104/70, heart rate 66, afebrile, maintaining oxygen saturation on 2 L nasal cannula. Laboratory data reviewed, WBC 9, hemoglobin 14, platelets 263, sodium 139, potassium 4.1, BUN 13, serum creatinine 1.0. Patient currently maintained on IV Lasix 40 mg every 8 hours, aspirin 81 mg daily, atorvastatin 40 mg nightly, hydrochlorothiazide 12.5 mg daily, propanolol 120 mg twice a day. PHYSICAL EXAMINATION Vitals reviewed CONSTITUTIONAL: No apparent distress. Morbidly obese. HEENT: Neck Supple. CHEST EXAMINATION: Lungs are clear to auscultation. HEART EXAMINATION: Regular rate and rhythm. S1, S2 heard. No murmurs, gallops or rub. ABDOMEN: Soft, nontender. EXTREMITIES: 2+ peripheral pulses, bilateral lower extremity venous stasis changes with no edema noted. No calf tenderness. NEUROLOGIC EXAMINATION: Patient is awake, alert and oriented x3. ASSESSMENT Acute on chronic diastolic heart failure Hypertension Dyslipidemia Schizophrenia History of benzodiazipine addiction Morbid obesity, BMI 65 PLAN We will change to oral Lasix 40mg BID Continue home cardiac medications We will sign off at this time. Please reach out with further questions or concerns. Objective - Vital Signs Vital signs: Vital Signs Temp 98.1 F 02/23/21 08:21 Pulse 66 02/23/21 08:21 Resp 17 02/23/21 08:21 BP 104/70 02/23/21 08:21 Pulse Ox 92 L 02/23/21 08:21 Intake & Output 02/22/21 02/23/21 02/23/21 18:59 06:59 18:59 Weight 166 kg Other: Voiding Method Toilet Toilet # Voids 1 - Labs CBC & Chem 7: 02/23/21 06:34 02/23/21 06:34 Labs: Abnormal Lab Results - Last 24 Hours (Table) 02/22/21 02/22/21 02/22/21 Range/Units 11:37 16:48 20:41 Hct (37.2-46.3) % MCHC (32.0-37.0) g/dL RDW (11.5-14.5) % Eosinophils # (0.04-0.35) X 10*3/uL Carbon Dioxide (21.6-31.8) mmol/L POC Glucose (mg/dL) 118 H 103 H 102 H (75-99) mg/dL 02/23/21 02/23/21 02/23/21 Range/Units 06:34 06:34 06:50 Hct 46.8 H (37.2-46.3) % MCHC 30.3 L (32.0-37.0) g/dL RDW 16.2 H (11.5-14.5) % Eosinophils # 0.47 H (0.04-0.35) X 10*3/uL Carbon Dioxide 33.9 H (21.6-31.8) mmol/L POC Glucose (mg/dL) 113 H (75-99) mg/dL
[2021-02-23 11:37] LABS: Glucose,Whole Blood 117 mg/dL (75-99)
[2021-02-23] MEDS ORDERED: FUROSEMIDE 40 MG TAB PO SCH (16:00)
--- NOTE | 2021-02-23 21:28 | DS ---
DISCHARGE SUMMARY DATE OF SERVICE: 02/23/2021 FINAL DIAGNOSES: 1. Congestive heart failure acute exacerbation acute on chronic diastolic dysfunction, ejection fraction 55% to 60%. 2. Elevated WBC present on admission, possibly reactive. 3. Diabetes mellitus type 2. 4. Hypertension. 5. Hyperlipidemia. 6. History of cholecystectomy. 7. Diarrhea, possibly antibiotic induced. 8. History of benzodiazepine addiction. 9. Anxiety, depression, panic disorder, schizophrenia. 10.Continued ongoing nicotine dependence. 11.Morbid obesity with body mass index of 65.7. 12.Chronic venous insufficiency of both legs. 13.FULL CODE. DISCHARGE DISPOSITION: The patient will be discharged in stable condition with guarded prognosis. HISTORY OF PRESENT ILLNESS: This 40 -year-old woman admitted with CHF/treated with IV diuretics. Patient improved significantly. Patient was seen by Cardiology. On exam, vitals signs are stable. Cardiovascular: S1, S2. Abdomen soft. Nervous system: No focal deficits. DISCHARGE ADVICE AND MEDICATIONS: 1. Diet is cardiac diet. 2. Activity limited until followup. 3. Follow up with primary physician in a month. 4. Follow up with Cardiology as recommended. Medications are as follows: 1. Aspirin 81 mg daily. 2. Calcium with zinc. 3. Catapres 0.1 mg p.r.n. 4. Elavil 100 mg q.h.s. 5. Hydrochlorothiazide 12.5 mg daily. 6. K-Dur 10 mEq p.o. b.i.d. 7. Lipitor 40 mg q.h.s. 8. Metformin 500 mg p.o. daily. 9. Motrin p.r.n. 10.Prilosec 20 mg p.o. daily. 11.ProAir p.r.n. 12.Propranolol 120 mg p.o. b.i.d. 13.Rexulti 4 mg p.o. daily. 15.Tylenol p.r.n. 16.Viibryd 20 mg p.o. daily. 17.Zofran p.r.n. 18.Gabapentin 600 mg p.o. t.i.d. 19.Habitrol 14 daily. 20.Lasix 40 mg p.o. b.i.d. 21.Follow up CBC, BMP in the outpatient setting with Cardiology and primary physician. Once again the patient will be discharged in stable condition with guarded prognosis. MMODL / IJN: [id number] / MTDD
== END 2021-02-23 13:09 | disposition home or self-care (01) | DRG 292 ==
LOC: EC 13:03 → 3SCARD 15:25 → 4SSUR 15:54
PROVIDERS: ADMIT Internal Medicine; ATTEND Internal Medicine
DX: I11.0 Hypertensive heart disease with heart failure (principal); F19.20 Other psychoactive substance dependence, uncomplicated; Z68.44 Body mass index [BMI] 60.0-69.9, adult; L03.119 Cellulitis of unspecified part of limb; I50.33 Acute on chronic diastolic (congestive) heart failure; E11.9 Type 2 diabetes mellitus without complications; Z20.822 Contact with and (suspected) exposure to COVID-19; E66.01 Morbid (severe) obesity due to excess calories; E78.5 Hyperlipidemia, unspecified; F13.10 Sedative, hypnotic or anxiolytic abuse, uncomplicated; F17.200 Nicotine dependence, unspecified, uncomplicated; F31.9 Bipolar disorder, unspecified; F20.9 Schizophrenia, unspecified; F41.0 Panic disorder [episodic paroxysmal anxiety]; I45.10 Unspecified right bundle-branch block; I87.2 Venous insufficiency (chronic) (peripheral); R09.02 Hypoxemia; Z79.82 Long term (current) use of aspirin; Z79.84 Long term (current) use of oral hypoglycemic drugs; Z79.899 Other long term (current) drug therapy; Z80.1 Family history of malignant neoplasm of trachea, bronchus and lung; Z90.49 Acquired absence of other specified parts of digestive tract
CPT/HCPCS: 36415; 71045; 71046; 80048; 80053; 81001; 83036; 83880; 84484; 85025; 85610; 85730; 87635; 93005; 96374; 99285